=== PATIENT | female | born 1960 | race Asian ===

== ENCOUNTER 2024-04-09 03:00 | Inpatient (IN) | payer OTHER, SELFPAY ==
[2024-04-08 17:45] VITALS: BMI 16.4
[2024-04-08 17:47] VITALS: BP 126/79
[2024-04-08 17:58] VITALS: BP 126/79
[2024-04-08 19:32] LABS: % Basophils 0.4 % (0-2); % Immature Granulocytes 0.6 % (0-0.5); % Lymphocytes 33.4 % (20.5-51.1); % Monocytes 12.1 % (1.7-9.3); % Neutrophils 53.5 % (42.2-75.2); Absolute Lymphocytes 1.6 10^3/uL (1.2-3.4); Absolute Monocytes 0.6 10^3/uL (0.1-0.6); Absolute Neutrophils 2.6 10^3/uL (1.4-6.5); Hematocrit 28.2 % (37.0-47.0); Hemoglobin 9.8 g/dL (12.0-16.0); Mean Corp Hgb Conc. 34.8 g/dL (33.0-37.0); Mean Corpuscular Volume 92.2 fL (81.0-99.0); Mean Platelet Volume 8.9 fL (7.4-10.4); Nucleated Red Blood Cells % 0 %; Platelet Count 378 10^3/uL (130-400); Red Blood Cell Count 3.06 10^6/uL (4.20-5.40); Red Cell Dist. Width 14.7 % (11.5-14.5); White Blood Cell Count 4.9 10^3/uL (4.8-10.8)
[2024-04-08] MEDS: NSS 1000 IV (19:43)
[2024-04-08 19:49] LABS: ALT (SGPT) 38 U/L (0-35); AST (SGOT) 43 U/L (14-36); Albumin 3.4 g/dl (3.5-5.0); Alkaline Phosphatase 142 U/L (38-126); Blood Urea Nitrogen 14 mg/dl (7-17); Calcium 9.9 mg/dl (8.4-10.2); Carbon Dioxide 24 mmol/L (22-30); Chloride 103 mmol/L (98-107); Estimated Creatinine Clearance 58 ml/min; Glucose 88 mg/dl (70-99); Potassium 4.2 mmol/L (3.5-5.1); Sodium 137 mmol/L (135-145); Total Bilirubin 0.5 mg/dl (0.2-1.3); Total Protein 6.7 g/dl (6.3-8.2); eGFR > 60.00
[2024-04-08 19:50] LABS: Lipase 65 U/L (23-300)
[2024-04-08 20:05] LABS: Magnesium 1.9 mg/dl (1.6-2.3)
[2024-04-08] MEDS: PROTONIX IV 40 MG IV (20:12)
[2024-04-08] MEDS: MAALOX 40 PO (20:12)
[2024-04-08 21:43] VITALS: BP 100/69
--- NOTE | 2024-04-08 21:43 | ED.GENMED ---
History of Present Illness
General
Chief Complaint: Abdominal Pain
Source: patient
Exam Limitations: none
Time Seen by Provider: 04/08/24 19:07
Nursing documentation reviewed up to this point in time: agreed with
Travel History
Have you had any contact with someone who has COVID-19?: No
Do you have any symptoms of coronavirus? Fever > 100 degrees, chills, cough, shortness of breath, sore throat, loss of taste or smell, muscle aches, or headache?: No
History of Present Illness
History of Present Illness:
Patient discharged from the [facility] 2 days ago, after being treated for a number of medical conditions, including recent removal of previous gastric tube, presents to ED secondary to persistent abdominal pain with
intermittent episodes of vomiting since she has been home. Patient states that her abdominal pain actually started prior to being discharged home. Patient unable to recall or produce any discharge information from [facility]. Abdominal pain described as diffuse, pressure, without any alleviating or exacerbating factors. Denies trauma. Patient reports having had loose bowel movements since she has been home. Denies fever or chills. Denies coughing. Denies
sore throat.
Past History
Past History
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
ED Past Surgical History: Orthopedic and Other (Brain biopsy)
Patient has exhibited threatening behavior?: No
Social History
Tobacco: Non-smoker
Alcohol: None
Drug: None
Personal:
Living: with family
Employment: Not employed
Family History
Family History: Other (Mother is a paranoid schizophrenic)
Review of Systems
Review of Systems
Allergies reviewed?: Yes
Constitutional: Reports no symptoms; Denies fever
EENT: Reports no symptoms
Respiratory: Reports no symptoms; Denies trouble breathing
Cardiac: Reports no symptoms; Denies chest pain
ABD/GI: Reports abdominal pain, nausea, vomiting and diarrhea
: Reports no symptoms
Musculoskeletal: Reports no symptoms
Skin: Reports no symptoms
Neurological: Reports no symptoms
Phy Exam
Physical Exam
Physical Exam:
Physical Exam
General: mild distress, not acutely ill. afebrile
Head: nc/at. eomi
Neck: supple. no meningeal signs.
Heart: s1/s2 regular rate and rhythm, no murmur. equal radial pulses.
Lungs: no acute respiratory distress. clear bilaterally
Abdomen: normal bowel sounds. previous g-tube noted, with minimal bilious drainage. no distention. healing midline surgical scar noted with an approx 2cm x 4cm healing wound.
Neuro: alert and oriented. no focal neurological deficits
Skin: no rash
Psychiatric: well kept. interactive and cooperative
Extremities: no edema. no calf tenderness.
Course
Orders/Labs/Results
Orders:
Orders
04/08/24 19:25
Complete Blood Count/With Diff Urgent
Comprehensive Metabolic Panel Urgent
Lipase Urgent
Magnesium Urgent
04/08/24 19:28
0.9% Sodium Chloride 1000 ml [Nss] 1,000 ml IV BOLUS
04/08/24 19:29
Add On- LAB Urgent
Tests Added?: magnesium
Stool Culture Urgent
DIRK Source: Feces/Stool
Specimen Description:
04/08/24 20:02
Mag Hydrox/Al Hydrox/Simeth [Maalox] 30 ml Phenobarb/Hyoscy/Atropine/Scop [] 10 ml PO NOW
Pantoprazole [Protonix IV] 40 mg IV NOW STA
04/08/24 20:04
Mag Hydrox/Al Hydrox/Simeth [Maalox] 30 ml .ROUTE .STK-MED ONE
Phenobarb/Hyoscy/Atropine/Scop [] 10 ml .ROUTE .STK-MED ONE
04/08/24 21:47
CR Obstruct Series W/pa Chest Urgent
Comment:
Reason For Exam: abdominal pain w recent g-tube removal
04/08/24 22:54
Iohexol [Omnipaque] See Protocol PO NOW STA
04/09/24 00:15
CT Abd/pel W Iv And Oral Contr Urgent
Reason For Exam: abdominal pain
04/09/24 02:15
0.9% Sodium Chloride 1000 ml [Nss] 1,000 ml IV 100 mls/hr
04/09/24 02:47
Admit/Transfer Patient As Directed
Co-Sign Provider:
Level of Care: Inpatient admission
Assign to:: Medical/Surgical
Physician / Group: Laquita Booth - hospitalist
Diagnosis: pSBO vs ileus
Reason for Hospitalization: pSBO vs ileus - IVF, General surg eval
Expected length of stay greater than two midnights?: Yes
ELOS- Estimated Length of Stay in days: 2
I certify the patient meets the requirements for IP care: Yes
04/09/24 02:49
Code Status As Directed
Resuscitation Status: Full Code
04/09/24 05:06
Bisacodyl [Dulcolax] 10 mg RECTAL [id number] PRN
Docusate W/Senna [Senokot-S] 1 tablet PO BIDPRN PRN
Morphine Sulfate 2 mg IV Q4HPRN PRN
Ondansetron Injectable [Zofran] 4 mg IV Q6HPRN PRN
Polyethylene Glycol Powder [Miralax] 17 grams PO DAILYPRN PRN
04/09/24 05:06
SURGICAL CONSULT Routine
Consulting Provider: Chip Henson
Was physician already notified: Yes
Activity As Directed
Activity Level: As Tolerated
Obtain Records As Directed
Dates of Information to be Released: 01/25 to present
Type of Information Requested: Entire Record
Vital Signs As Directed
Frequency: Per unit guidelines
DX Deep Vein Thrombosis Video Routine
04/09/24 05:19
Complete Blood Count/No Diff IN AM
Comprehensive Metabolic Panel IN AM
04/09/24 Breakfast
NPO
Allow oral meds: Yes
Allow clear liquids: Sips of Clears
04/09/24 18:00
Enoxaparin Sodium [Lovenox] 30 mg SC QPM
Abnormal Lab Results
04/08/24
19:25
RBC 3.06 L 10^6/uL
(4.20-5.40)
Hgb 9.8 L g/dL
(12.0-16.0)
Hct 28.2 L %
(37.0-47.0)
MCH 32.0 H pg
(27.0-31.0)
RDW 14.7 H %
(11.5-14.5)
Immature Gran % 0.6 H %
(0-0.5)
Monocytes % 12.1 H %
(1.7-9.3)
Creatinine 0.4 L mg/dL
(0.6-1.0)
AST 43 H U/L
(14-36)
ALT 38 H U/L
(0-35)
Alkaline Phosphatase 142 H U/L
(38-126)
Albumin 3.4 L g/dl
(3.5-5.0)
04/08/24 19:25
04/08/24 19:25
Vital Signs
Initial and Last Documented VS:
Initial Vital Signs
Temp Pulse Resp BP Pulse Ox
98.6 F 94 13 126/79 96
04/08/24 17:47 04/08/24 17:47 04/08/24 17:47 04/08/24 17:47 04/08/24 17:47
Last Documented Vital Signs
Temp Pulse Resp BP Pulse Ox
98.3 F 94 18 102/66 97
04/09/24 07:30 04/09/24 07:30 04/09/24 07:30 04/09/24 07:30 04/09/24 07:30
MDM/Problems Addressed
MDM/Problems Addressed:
CT report reviewed - doubt completely obstructive process, as patient has had loose bowel movements since being discharged home and pain is minimal in ED without any vomiting episodes. Discussed with oncall general surgeon () -okay with
patient being managed at [facility], and not require transferred down to [facility].
In light of patient's complex medical condition, and likely needing short term rehab, will admit for further evaluation and treatment.
*Critical Care Note
Total Time (30-74mins, 75-104mins- exclusive of procedures): Not Applicable
ED Attending Note
-
Portions of this chart may have been created with voice recognition software.� Occasional wrong word or��sound alike� substitutions may have occurred due to the inherent limitations of voice recognition software.
Discharge Plan
Departure
Patient Disposition: Admit
Date of Disposition: 04/09/24
Time of Disposition: 02:01
Admit to: Telemetry
Presentation/result/management discussed w/ accepting MD/DO: Hospitalist
Discharge Problem:
Abdominal pain
Interventions
Interventions:
*General Assessment Last Done: 04/08/24 18:00
*Neglect/Abuse Screening Last Done: 04/08/24 18:00
ED- Fall Risk Assessment Last Done: 04/08/24 19:05
*Nursing Disposition Last Done: 04/09/24 04:39
RG-Cafelx-Kvkeydzibv Assessment Last Done: 04/08/24 18:00
Discharge Date and Time
Discharge Date/Time: 04/09/24 04:39
[2024-04-08 21:48] VITALS: BP 100/69
[2024-04-08 22:00] VITALS: BP 100/57
[2024-04-08] MEDS: OMNIPAQUE 50 ML PO (23:01)
[2024-04-09] VITALS (7 sets, daily range): BP systolic 93–128; BP diastolic 56–77; O2SAT 98; BMI 15.0
--- NOTE | 2024-04-09 02:01 | HPS.HSE ---
Family Physician
-
Family Physician: Luis Shepard
Chief Complaint
-
abd pain
History of Present Illness
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 Symptom onset 2 days ago. Pain is epigastric toward L abdomen. Pain is persistent, severe and does not radiate. Patient reports
vomiting. Has had loose BMs at home. No fever/chills. No CP, cough, SOB.
She was recently discharged from [facility] 2 days with removal of gastric tube - she is unable to give further details as to why she had a G tube in the first place but does report history of intolerance to solid foods. She is now on TPN via R CW PICC
line.
In ER, imaging revealed pSBO vs ileus and patient's case was discussed with surgery who ok'd admission here in leiu of transfer to [facility].
Records from [facility] are pending
Medical History
Past Medical History
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
Past Surgical History: Reports Other (brain biopsy, muscle biopsy, LP x 5, micro digital sympathectomy)
Social History
Tobacco: Non-smoker
Alcohol: None
Drug: None
Personal:
Living: With Family
Employment: Not Employed
Family History
Family History: Not pertinent
Allergies / Home Medications
Allergies reflects when Allergies were last updated in [facility].
Home Medications with original date entered in [facility]
Allergy/Medication List:
Allergies
Allergy/AdvReac Type Severity Reaction Status Date / Time
codeine Allergy headache Verified 04/24/23 12:36
diphenhydramine Allergy Unknown Verified 04/24/23 12:36
erythromycin base Allergy abdominal Verified 04/24/23 12:36
pain
naproxen Allergy ringing in Verified 04/24/23 12:36
my ears
Penicillins Allergy Unknown Verified 04/24/23 12:36
quinine Allergy gastric Verified 04/24/23 12:36
pain
Tetracyclines Allergy Rash Verified 04/24/23 12:36
Home Medications
apixaban 5 mg tablet (Eliquis) 5 mg PO BID 04/08/24
gabapentin 100 mg capsule 100 mg PO TID 04/08/24
Review of Systems
-
A 12 point ROS was completed and negative except as noted: Yes
Physical Exam
Vital Signs
Vital Signs
Temp Pulse Resp BP Pulse Ox
98.6 F 85 24 100/57 98
04/08/24 17:47 04/09/24 01:45 04/09/24 01:45 04/08/24 22:00 04/09/24 01:45
Physical Exam
General: Appears Chronically Ill and Cachectic
HEENT: NormoCephalic and Anicteric
Respiratory: No Wheezes or Rales
Cardiac: S1/S2 and Regular Rhythm
GI: Soft, Tender and Other (dressing in place, did not remove per patient request.)
Neuro: AO x 3
Psych: Calm
Laboratory Results
-
04/08/24 19:25
04/08/24 19:25
Laboratory Results
Total Bilirubin 0.5 mg/dl (0.2-1.3) 04/08/24 19:25
AST 43 U/L (14-36) H 04/08/24 19:25
ALT 38 U/L (0-35) H 04/08/24 19:25
Alkaline Phosphatase 142 U/L (38-126) H 04/08/24 19:25
Lipase 65 U/L (23-300) 04/08/24 19:25
Data Reviewed
-
Lab Data: Labs Reviewed by me
Impression/Plan
-
Assessment:
pSBO vs ileus
- per initial CT report: await final read
- case was discussed by ER and GS; ok to keep at
- NPO/IVF
- pain control, anti-emetics
- consider repeat imaging tomorrow in form of AXR
- patient is on TPN after removal of G-Tube. We have no records to explain indication for G-tube placement and subsequent removal.
- [facility] records requested.
Chronic conditions (per prior records)
Anxiety disorder.
Conversion disorder.
Pseudoseizures.
B12 deficiency
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
Abnormal brain lesion-left medial occipital lobe and posterior temporal lobe and diffusion restriction May 2014-also new development of previous right frontal brain craniotomy/brain biopsy-etiology unclear
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
Raynaud's.
Hypothyroid
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
Infectious/ischemic colitis [id number]
Brain biopsy-2013
DVT ppx: on prophylactic Eliquis at home; will hold this, use Lovenox instead in case of surgical intervention
Code: Full
[2024-04-09] MEDS: NSS 1000 IV ×3 (02:10→22:15)
[2024-04-09] MEDS: MORPHINE SULFATE 2 MG IV ×3 (05:28→15:54)
[2024-04-09 05:33] LABS: Hematocrit 25.7 % (37.0-47.0); Hemoglobin 8.6 g/dL (12.0-16.0); Mean Corp Hgb Conc. 33.5 g/dL (33.0-37.0); Mean Corpuscular Hgb 32.1 pg (27.0-31.0); Mean Corpuscular Volume 95.9 fL (81.0-99.0); Mean Platelet Volume 8.9 fL (7.4-10.4); Platelet Count 317 10^3/uL (130-400); Red Blood Cell Count 2.68 10^6/uL (4.20-5.40); Red Cell Dist. Width 14.8 % (11.5-14.5)
[2024-04-09 06:03] LABS: ALT (SGPT) 33 U/L (0-35); AST (SGOT) 30 U/L (14-36); Albumin 2.8 g/dl (3.5-5.0); Alkaline Phosphatase 118 U/L (38-126); Blood Urea Nitrogen 10 mg/dl (7-17); Calcium 9.1 mg/dl (8.4-10.2); Carbon Dioxide 22 mmol/L (22-30); Chloride 108 mmol/L (98-107); Estimated Creatinine Clearance 58 ml/min; Glucose 76 mg/dl (70-99); Sodium 140 mmol/L (135-145); Total Bilirubin 0.4 mg/dl (0.2-1.3); Total Protein 5.9 g/dl (6.3-8.2); eGFR > 60.00
--- NOTE | 2024-04-09 06:32 | PTCARENOTE ---
no delay received. pt aaox3 but anxious at times. vss. nss @ 100cc/hr via r picc. call [facility] at bedside. 2mg morphine admin for abd pain. pt updated on plan of care. will monitor.
--- NOTE | 2024-04-09 12:31 | W.PN.UPDATE ---
Update Note
Progress Note Update
Non billable note. Patient examined at bedside.
60-year-old female with history of Raynaud's, unspecified [employer] disorder, conversion disorder, meningeal encephalitis, abnormal brain lesion, autoimmune disorder possible lupus vasculitis, infectious/ischemic colitis, recently discharged from of
[place] came with abdominal pain, nausea, vomiting. CT scan consistent with bowel obstruction. Also concern for ileus. Surgery following. 2 very small fluid collection also seen which could be secondary to residual fluid collection given history of
recent gastrostomy tube removal. Records has been requested from [facility]. Call was placed to spouse, per him patient was hospitalized for about 8 months at [facility]. He doesnt know further details. He was able to find medication bottles and patient
is currently only on elqiuis,senna and gabapentin. repeat abdominal xray today. patient couldnt tell me why she is on eliquis. Keep NPO. antiemetics.
General: No Apparent Distress
HEENT: Anicteric
Cardiac: S1/S2 and Regular Rhythm
GI: Non Distended, Tender, midline surgical scar with previous G-tube site draining bilious fluid
Neuro: Awake and Oriented
Psych: Calm
--- NOTE | 2024-04-09 13:07 | CON.GS ---
Addendum entered and electronically signed by Chip Henson MD 04/10/24 10:12:
CDI
Recent passage of flatus and stool with minimal contrast into colon on repeat X-ray: High grade partial SBO
Addendum entered and electronically signed by Chip Henson MD 04/09/24 15:36:
Patient seen and examined.
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 Clinical history from the patient is limited. Currently she reports
abdominal pain which is worse in the LUQ. No fevers or chills. She reports having multiple procedures done at [facility] including an abdominal exploration with small bowel resections as well as a G-tube placement; unknown indication or exact
details. Records from [facility] are pending. Currently she denies any nausea or vomiting. Her last bowel movement was yesterday. She was initially discharged to home with TPN per the patient and 's request, however, she has been unable to
manage. Workup in the ED notable for normal WBC, chronic anemia, normal electrolytes and renal function, mildly elevated LFTs and ALP. A CT scan with oral and IV contrast demonstrates dilated loops of proximal and mid small bowel with decompressed
distal loops, transition point appears to be in the RIGHT mid to lower abdomen. No evidence of pneumatosis or free air.
Gen: NAD
Abd: soft, tender diffusely with excoriated skin at the midline and old G-tube site, gastric contents leaking from small whole a G-tube site, skin separation an weeping of midline, mild distension, non-peritoneal
Labs and imaging reviewed.
Patient is a 63 yo F p/w SBO likely secondary to adhesions possibly related to motility.
Difficult to completely discern for exact issue, though based on CT scan imaging appears as though she has a SBO. Component of abdominal pain likely neuropathic related to excoriation of skin. Workup ongoing, need records from [facility]. No plans
or indication for surgical intervention at this time. Recommend trial of medical management with bowel rest and IVF. If no improvement with nonsurgical measures, may need to consider transfer back to [facility] given the complexity of her case and
recent care.
-- No plans for surgical intervention at this time
-- NPO, IVF, consult nutrition for TPN recs
-- Repeat X-ray abdomen
-- Obtain records from [facility]
Original Note:
Consultation
-
Date/Time Consultation Requested: 04/09/2024
Date/Time Consultation Performed: 04/09/2024
Requesting Provider: Hospitalist
Performing Provider: Dr. Chip Gonzalez
Reason for Consultation: Possible small bowel obstruction versus ileus
Medical History
-
Chief Complaint: Abdominal pain
History of Present Illness:
Theresa is a 63-year-old female with history of anxiety disorder, conversion disorder, pseudoseizures, and Raynaud's phenomenon who presented to the ED on 04/25/2024 with LUQ abdominal pain. Patient is a poor historian. Patient reports LUQ
stabbing pain rated 10/10 that started 3 days ago s/p G-tube removal 04/06/2024. Patient had a long stay (at least 3 months) at [place] with chronic G-tube and right CW PICC line in place (reason for G-tube not known to the patient's) and stated that
the G-tube was not working hence its removal. Patient complaints that the abdominal pain is around the G-tube site, on and off, does not radiate, worse with any movement and gets better with Tylenol, diluted, morphine. She endorsed that the pain
does not disappear but improved to 5/10 with the above medications. Patient stated that the pain started prior to discharge from [facility] but got worse at home with some nausea, vomiting and diarrhea. Last episode of vomiting was p.m. of 04/06/2024
after solid food ingestion, and last BM was 04/07/2024. Patient was discharged to a rehab and did not go because she and her wanted to do things on their own. She stated that they could not find a facility that could handle both had TPN and
G-tube. There is no idea why the G-tube was placed and why it was removed. Attempts to contact the spouse, Ruperto ([phone]) for further information proved abortive. On physical exam, there is a midline surgical scar present with previous G-tube
site draining minimal bilious fluid. The G-tube sites had minimal erythema and excoriations with patient jumping in pain while the dressing is being removed. Patient denies chest pain, shortness of breath, nausea, and vomiting at this time.
Surgical team was consulted for further evaluation and management.
Past Medical History
Past Medical History: Psychiatric and Seizures
Past Surgical History: Bowel Resection
Social History
Tobacco: Non-Smoker
Alcohol: None
Drug: None
Personal:
Living: With Family
Employment: Not Employed
Family History
Family History: Other (Paranoid schizophrenia in mother.)
Allergies / Home Medications
Allergy/AdvReac Type Severity Reaction Status Date / Time
codeine Allergy headache Verified 04/24/23 12:36
diphenhydramine Allergy Unknown Verified 04/24/23 12:36
erythromycin base Allergy abdominal Verified 04/24/23 12:36
pain
naproxen Allergy ringing in Verified 04/24/23 12:36
my ears
Penicillins Allergy Unknown Verified 04/24/23 12:36
quinine Allergy gastric Verified 04/24/23 12:36
pain
Tetracyclines Allergy Rash Verified 04/24/23 12:36
�Medication �Instructions �Recorded �Confirmed �Type
apixaban 5 mg tablet (Eliquis) 5 mg PO BID 04/08/24 04/08/24 History
gabapentin 100 mg capsule 100 mg PO TID 04/08/24 04/08/24 History
Review of Systems
-
History Source: Patient
Constitutional: No Symptoms and Other (Denies fever, chills, chest pain, shortness of breath.)
EENT: No Symptoms
Respiratory: No Symptoms
Cardiac: No Symptoms
Abdomen/GI: Abdominal Pain and Other (History of nausea, vomiting, diarrhea.)
: No Symptoms
Musculoskeletal: No Symptoms
Skin: No Symptoms
Neurological: Other (History of pseudoseizure disorder)
Endocrine: No Symptoms
Hematologic/Lymphatic: No Symptoms
Physical Exam
Vital Signs
Temp Pulse Resp BP Pulse Ox
98.3 F 94 18 102/66 97
04/09/24 07:30 04/09/24 07:30 04/09/24 07:30 04/09/24 07:30 04/09/24 07:30
04/08/24 04/09/24 04/10/24
06:59 06:59 06:59
Actual Weight 38 kg 34.836 kg
Body Mass Index (BMI) 15.0
Lab Results
04/09/24 05:19
04/09/24 05:19
WBC 4.0 10^3/uL (4.8-10.8) L 04/09/24 05:19
Hgb 8.6 g/dL (12.0-16.0) L 04/09/24 05:19
Hct 25.7 % (37.0-47.0) L 04/09/24 05:19
Plt Count 317 10^3/uL (130-400) 04/09/24 05:19
Abs Immat Gran (auto) 0.0 10^3/uL (0-0.05) 04/08/24 19:25
Neutrophils % 53.5 % (42.2-75.2) 04/08/24 19:25
Physical Exam
General: No Apparent Distress, Pain and Poor Appetite
HEENT: Anicteric and Atraumatic
Cardiac: S1/S2 and Regular Rhythm; Negative Murmur or Rub
GI: Non Distended, Normal Bowel Sounds, Tender and Other (Midline surgical scar with previous G-tube site draining minimal bilious fluid)
Skin: Warm
Neuro: Awake and Oriented
Psych: Calm
Data Reviewed
-
Radiology: Image Personally Visualized and interpreted, Report Reviewed by me and Discussed with Physician
CT Scan: Image Personally Visualized and interpreted, Report Reviewed by me and Discussed with Physician
Labs: Labs Reviewed by me and Discussed with Physician
Old Records: Reviewed
Assessment / Plan
-
ASSESSMENT: 63-year-old female with PMH of pseudoseizure, conversion disorder, anxiety, unknown abdominal surgery s/p removal of G-tube who presented to ED complaining of abdominal pain around the G-tube site.
CONDITIONS PRIOR TO ADMISSION:
Anxiety disorder
Conversion disorder
Pseudoseizures
Meningoencephalitis
Raynaud's phenomenon
Brain biopsy
N/V/D
Impression/Plan:
Presentation with LUQ abdominal pain around G-tube site:
-Patient with history of G-tube placement and TPN via right CW PICC line.
-Pain most likely irritation from gastric content leakage vs psychogenic chronic pain syndrome. Ileus from adhesions from previous abdominal surgeries.
-CXR chest/abdomen 04/08/2024 suspicious of SBO, CTA/P 03/30/2024 with dilated loops of proximal to mid small bowel, anastomotic staple lines, no free intraperitoneal air, suggesting SBO.
-CR obstructive series today to further evaluate for ileus vs adhesions due to previous abdominal surgeries. This would also give us insight as to the need for G-tube replacement.
-Continue Lovenox, hold Eliquis (no idea why patient is on Eliquis at home).
DVT prophylaxis Lovenox.
CODE STATUS: Full code

---
Data:
CT abdomen/pelvis w/ oral and IV contrast 04/09/2024:
There is evidence of previous surgery with anastomotic staple lines present.
Dilated loops of proximal to mid small bowel with collapsed caliber distal ileum and colon. Findings would be most suggestive of small bowel obstruction. No evidence of free intraperitoneal air.
Diffuse fatty infiltration the liver.
CXR chest/abdomen 04/08/2024:
1. No acute cardiopulmonary process.
2. Findings suspicious for small bowel obstruction..
--- NOTE | 2024-04-09 14:00 | PTCARENOTE ---
Patient refused fiber heel boots.
--- NOTE | 2024-04-09 14:10 | WOUNDNOTE ---
TODD RN note: Patient admitted with abdominal pain.
See H&P for complete history.
PMH: Recently discharged from [facility] for abdominal surgeries and removal of feeding tube. Stroke, seizures, vasculitis, Raynauds, bowel obstruction, ischemic bowel, C-diff, UTI, L homonymous hemianopsia-visual loss and anxiety.
Wound Location and type/assessment: Patient admitted with: Healing PI to sacrum, now a stage 2 PI small open area, pink base with scar surrounding. Abdomen with healing surgical site, open shallow wounds, no odor and moderate drainage. 2 black
sutures visible proximal to suture line. Old feeding tube site with painful excoriated skin surrounding old opening, scant drainage. Heels are intact, appears patient has foot drop. Dressings very painful to remove with paper tape. Reviewed
abdominal wounds with Dr. Henson. Patient able to turn self to sides.
Appetite: NPO patient is only 76lbs.
Pressure redistribution devices in place: On [facility] air bed. Turning schedule in effect. Offloading heel boots.
Plan: Applied Exuderm thin with hole cut out for old FT opening, folded gauze over opening then secure with silicone foam. Abdominal suture line applied adaptic and dry dressing with silicone foam. changed sacral silicone foam. Called [employer] for TruVue
lite offloading heel boots, nurse will apply when arrives.
Will confirm orders with hospitalist and updated nurse Addis.
Updated care plan and will follow as needed.
Note to case management of equipment requested for discharge: air mattress.
Recommend follow up with surgeon from [facility].
--- NOTE | 2024-04-09 15:00 | PTCARENOTE ---
Patient refused fiber heel boots.
--- NOTE | 2024-04-09 15:58 | CM ---
patient access manager reviewed patient's chart and met with patient and patient states she was home for 2 days from [place] when she was admitted to [facility], Patient states she lives with her spouse and brother and requires assistance with adl's.
Patient's spouse has Parkinson's. Patient reports that she was at [place] for 3 months where case management coordinator was attempting placement there but they were unsuccessful. If patient plans to leave on TPN patient may not be accepted at a skilled facility
due to cost of TPN and overall monitoring. Patient has been evaluated by [facility] for services for patient and spouse. Patient is current with [facility]. Patient needs PT/OT to assist with discharge planning.
Plan; Await PT/OT,. look at possible skilled options for patient.
[2024-04-09] MEDS: LOVENOX 30 MG SC (17:19)
--- NOTE | 2024-04-10 03:54 | DOWNTIME ---
There was a [employer] Client Steam Frame Operator Downtime on 04/09/2024 from 0100 to 04/10/2024 at 0300. Downtime documentation of patient's care, including medication administrations, has been reconciled in the electronic record per guidelines. Refer to the
patient's paper chart under the miscellaneous tab to see printed paper medication records and downtime forms.
[2024-04-10 04:47] LABS: % Basophils 0.9 % (0-2); % Eosinophils 0.3 % (0-6); % Immature Granulocytes 0.6 % (0-0.5); % Lymphocytes 37.7 % (20.5-51.1); % Neutrophils 47.5 % (42.2-75.2); Absolute Lymphocytes 1.3 10^3/uL (1.2-3.4); Absolute Monocytes 0.5 10^3/uL (0.1-0.6); Absolute Neutrophils 1.6 10^3/uL (1.4-6.5); Hematocrit 25.9 % (37.0-47.0); Hemoglobin 8.3 g/dL (12.0-16.0); Mean Corpuscular Hgb 31.8 pg (27.0-31.0); Mean Corpuscular Volume 99.2 fL (81.0-99.0); Mean Platelet Volume 8.8 fL (7.4-10.4); Nucleated Red Blood Cells % 0 %; Platelet Count 293 10^3/uL (130-400); Red Blood Cell Count 2.61 10^6/uL (4.20-5.40); Red Cell Dist. Width 14.6 % (11.5-14.5); White Blood Cell Count 3.5 10^3/uL (4.8-10.8)
[2024-04-10 05:22] LABS: ALT (SGPT) 25 U/L (0-35); AST (SGOT) 28 U/L (14-36); Albumin 2.7 g/dl (3.5-5.0); Alkaline Phosphatase 106 U/L (38-126); Blood Urea Nitrogen 7 mg/dl (7-17); Carbon Dioxide 12 mmol/L (22-30); Chloride 109 mmol/L (98-107); Estimated Creatinine Clearance 53 ml/min; Glucose 39 mg/dl (70-99); Sodium 138 mmol/L (135-145); Total Bilirubin 0.4 mg/dl (0.2-1.3); Total Protein 5.6 g/dl (6.3-8.2); eGFR > 60.00
[2024-04-10 05:35] VITALS: BMI 14.9
--- NOTE | 2024-04-10 05:35 | W.PN.UPDATE ---
Addendum entered and electronically signed by VEL Mejia 04/10/24 06:25:
BS 127 at 0616
Original Note:
Update Note
Progress Note Update
BS 31, patient at baseline, Patient is NPO, On NSS , will order Dextrose 12.5 mg IV x1, will order D5NS @100cc/hr
Co2 12, will give Sodium bicarb 50meQ IV dose x1
[2024-04-10] MEDS: D5/0.9% SODIUM CHLORIDE 500 IV (06:00)
[2024-04-10] MEDS: DEXTROSE 50% SYRINGE 12.5 GRAMS IV (06:00)
[2024-04-10] MEDS: SODIUM BICARBONATE 50 MEQ IV (06:03)
--- NOTE | 2024-04-10 06:05 | PTCARENOTE ---
glucose 31. bicarb 13. control and recovery special tactics notified. 1/2 amp dextrose and d5 normal saling @ 100cc admin. 50meq bicarb admin. Will follow protocol. Will monitor.
[2024-04-10 06:17] LABS: Glucose - Point of Care 127 mg/dl (70-99)
[2024-04-10] MEDS: MORPHINE SULFATE 2 MG IV ×3 (06:59→18:03)
[2024-04-10 07:41] VITALS: BP 110/62
--- NOTE | 2024-04-10 11:05 | W.PN.UPDATE ---
Update Note
Progress Note Update
Psychiatric Evaluation Dictated.
Patient admits to dysphoria and anhedonia as well as passive suicidal thoughts; seems to be related to her having been in and out of [place] and several rehabs bor past 8 months and she sees no end in sight. Surgeon just informed her of need for
further abdominal surgery and recommends transfer to [place]. She states at times she wishes she was given an injection to end it all but denies active suicide plan as she loves her and her cats. She however has few interests and has
difficulty thinking positively.
She is not interested in psychotropic medications concerned about side effects and of course it is not clear if they would help.
Accepts need for psychotherapy.
I would continue 1:1 as she finds it helpful to have someone there for support.
We will F/U.
[2024-04-10] MEDS: D5/0.9% SODIUM CHLORIDE IV (12:42)
[2024-04-10] MEDS: D5/0.9% SODIUM CHLORIDE 1000 IV (12:43)
--- NOTE | 2024-04-10 12:56 | W.PN.HOSP.TC ---
Addendum entered and electronically signed by Naz Kapoor MD 04/11/24 16:33:
Hospitalist who took care of pt at [facility] [phone]
Not there today
Please call tomorrow
Original Note:
Today's Communication/Plan
-
TPN
Repeat BMP to see what the Bicarb is
Till TPN up, add dextrose to fluids
Assessment / Plan
Assessment / Plan
63-year-old female had extensive workup and and recent a 3-month hospital stay at [facility] was discharged 2 days ago. Came in with abdominal pain worse in the left upper quadrant. She has had multiple procedures at [facility] with small bowel
obstructions, G-tube placement. She had a bowel movement yesterday. She was initially discharged home with TPN but she was unable to manage with her who has Parkinson disease. CAT scan of the abdomen in the ER showed dilated loops of
proximal and mid small bowel with and decompressed distal loops with a transition point in the right mid to lower abdomen.
Spent a lot of time to get history from pt, an son at bed side. Unfortunately they are all confused about her history. No clear answer. From what I got ....reportedly she was transferred from [facility] to [facility]
in July 2023 and ever since then she has been [id number] to [facility] and do rehabs. She had a G-tube placed and which was eventually removed. She was placed on TPN because of her poor p.o. intake however she was placed on a diet and was
discharged
Cachectis
Abdomen with a wound, G tube site and her abdomen with midline scar
LE No edema
CROSSBAND LAYER Non focal
# Anion gap acidosis gap of 17
Lactic acid level normal
Will repeat BMP
# Small bowel obstruction
Considered management with bowel rest and IV fluids
If needs surgery may need to be transferred to [facility]
Surgery evaluation appreciated
Continue with TPN-ordered
Get records from [facility]
# Vague suicidal ideation, depression-on one-to-one observation
Psychiatry consulted
# Chronic anemia-Check Iron studies
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
Care is very fragmented she states she follows up with at [facility]
She was on Depakote at one point and not on it anymore.
MRI-left medial occipital lobe and posterior temporal lobe and diffusion restriction May 2014- previous right frontal brain craniotomy/brain biopsy
# Nonepileptic seizures and conversion disorder noted on previous neuro consult
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
# Positive JOHNATHON titer 1 is to 2559April 2021
Pt also says she has a positive Rheumatoid factor
Dr.Albert Nunn in [facility] 20 years ago
Has seen at [facility] has seen her to rule out Mitochondrial disorder , had a muscle Bx.
at [facility] has considered PRESS ,MELAS,[facility] , But no Diagnosis
Has seen once and did not go back.
# History of ischemic colitis
# Severe Protein Calorie Malnutrition
# Raynaud's phenomenon
# Stage 2 PI Sacrum
# DVT prophylaxis
# Full code
D/W RN
D/W and son at bed side
Anticipated Discharge: 24 - 48 hours
Subjective/Interval History
-
Date of Service: April 10, 2024
Objective Data
-
Labs:
Laboratory Results
04/10/24
04:38
WBC 3.5 L
Hgb 8.3 L
Hct 25.9 L
Plt Count 293
Sodium 138
Potassium 4.0
Chloride 109 H
Carbon Dioxide 12 L*
BUN 7
Creatinine 0.4 L
Glucose 39 L*
Calcium 9.0
Total Bilirubin 0.4
AST 28
ALT 25
Alkaline Phosphatase 106
Vital Signs:
Vital Signs
Temp Pulse Resp BP Pulse Ox
98.6 F 93 20 110/62 94
04/10/24 07:41 04/10/24 07:41 04/10/24 07:41 04/10/24 07:41 04/10/24 07:41
I&O
04/09/24 04/10/24 04/11/24
06:59 06:59 06:59
Intake Total 480 / 480
Output Total 1000 / 1000
Balance -520 / -520
--- NOTE | 2024-04-10 13:35 | W.PN.GS2 ---
Today's Communication / Plan
-
KUB
Assessment / Plan
-
63F admitted here 2 days after DC from [facility] after several month stay, has failed to thrive essentially, appears to have recurrent sbo vs ileus
GI unavailable today to attempt endoscopic closure of GC fistula, if she remains here tomorrow could consider
Will check KUB today
If no improvement by tomorrow rec transfer back to [facility]
Subjective Data
-
Date of Service: April 10, 2024
AFVSS, c/o intractable abd pain, denies flatus/BM, denies n/v
Objective Data
-
Intake and Output
04/09/24 04/10/24 04/11/24
06:59 06:59 06:59
Intake Total 480 / 480
Output Total 1000 / 1000
Balance -520 / -520
Intake:
Oral fluids 480 / 480
Output:
Urine, Voided 1000 / 1000
Vital Signs
Temp Pulse Resp BP Pulse Ox
98.6 F 93 20 110/62 94
04/10/24 07:41 04/10/24 07:41 04/10/24 07:41 04/10/24 07:41 04/10/24 07:41
Lab Results
04/10/24 04:38
04/10/24 04:38
Calcium 9.0 mg/dl (8.4-10.2) 04/10/24 04:38
Magnesium 1.9 mg/dl (1.6-2.3) 04/08/24 19:25
Total Bilirubin 0.4 mg/dl (0.2-1.3) 04/10/24 04:38
AST 28 U/L (14-36) 04/10/24 04:38
ALT 25 U/L (0-35) 04/10/24 04:38
Alkaline Phosphatase 106 U/L (38-126) 04/10/24 04:38
Total Protein 5.6 g/dl (6.3-8.2) L 04/10/24 04:38
Albumin 2.7 g/dl (3.5-5.0) L 04/10/24 04:38
Physical Exam
-
Gen: nervous, cachectic
Abd: soft, thin, GC fistula present with gastric juice on the skin and excoriation present, midline dressing not removed
[2024-04-10 13:46] LABS: Lactic Acid 1.4 mmol/L (0.7-2.0)
--- NOTE | 2024-04-10 13:55 | CM ---
financial institution manager reviewed patient's chart and spoke with patient this am, per patient she was able to ambulate short distances with a walker, when she was at [facility] in [place], waiting on surgery consult and recommendation. Patient will
need PT/OT evaluations.
Plan; To follow with patient for discharge planning needs.
[2024-04-10 14:11] LABS: Iron 106 ug/dl (37-170)
[2024-04-10] MEDS: D5/0.45%NACL 1000 IV (14:31)
[2024-04-10 14:36] LABS: Percent Saturation 41 % (20-50); Total Iron Binding Capacity 257 ug/dl (265-497)
[2024-04-10 15:04] LABS: ALT (SGPT) 27 U/L (0-35); AST (SGOT) 28 U/L (14-36); Albumin 2.8 g/dl (3.5-5.0); Alkaline Phosphatase 105 U/L (38-126); Blood Urea Nitrogen 5 mg/dl (7-17); Calcium 8.4 mg/dl (8.4-10.2); Carbon Dioxide 19 mmol/L (22-30); Chloride 107 mmol/L (98-107); Estimated Creatinine Clearance 52 ml/min; Glucose 74 mg/dl (70-99); Magnesium 1.4 mg/dl (1.6-2.3); Phosphorus 2.8 mg/dl (2.5-4.5); Potassium 3.5 mmol/L (3.5-5.1); Sodium 137 mmol/L (135-145); Total Bilirubin 0.4 mg/dl (0.2-1.3); Total Protein 5.7 g/dl (6.3-8.2); Triglycerides 189 mg/dl (10-149); eGFR > 60.00
[2024-04-10 15:10] VITALS: BP 103/62
[2024-04-10 15:21] LABS: TSH 7.12 uIU/ml (0.47-4.68)
[2024-04-10 15:24] LABS: Ferritin 14.4 ng/ml (11.1-264.0)
--- NOTE | 2024-04-10 15:38 | PTCARENOTE ---
Offered patient a suppository to have a BM. Patient states LBM Monday, declines suppository at this time.
[2024-04-10 15:39] LABS: Vitamin B12 870 pg/ml (239-931)
[2024-04-10 15:53] LABS: Urine Albumin Negative (Neg - Trace); Urine Bilirubin Negative (Negative); Urine Character Clear (Clear); Urine Color Yellow; Urine Glucose Trace (Negative); Urine Ketone 3+ (Negative); Urine Leukocyte Negative (Negative); Urine Nitrite Negative (Negative); Urine Occult Blood Negative (Negative); Urine Specific Gravity 1.025 (<1.030); Urine Urobilinogen Negative (Neg - 1+)
[2024-04-10] MEDS: MAGNESIUM SULFATE 50 IV (16:48)
[2024-04-10] MEDS: LOVENOX SC (16:50)
--- NOTE | 2024-04-10 16:53 | PTCARENOTE ---
Patient refused Lovenox. Provider notified.
[2024-04-10 18:10] LABS: Glucose - Point of Care 84 mg/dl (70-99)
--- NOTE | 2024-04-10 18:40 | PTCARENOTE ---
Patient continues to say that she doesn't want to 'live like this'. No threat to injure herself. Pt does become upset at times and cries. Ruperto in room throughout the day. Emotional support continues to be provided and one to one
maintained. Pt did ask to speak with a [place]. scallop cutter Frankie notified and she did call the room and spoke with patient.
[2024-04-10] MEDS: Parenteral Nutrition, Central 1000 IV (20:40)
[2024-04-10 22:50] VITALS: BP 107/60
[2024-04-11] MEDS: MORPHINE SULFATE 2 MG IV ×4 (03:17→20:42)
[2024-04-11 06:00] VITALS: BMI 15.5
[2024-04-11 06:02] LABS: Blood Urea Nitrogen 7 mg/dl (7-17); Calcium 8.5 mg/dl (8.4-10.2); Carbon Dioxide 23 mmol/L (22-30); Chloride 104 mmol/L (98-107); Estimated Creatinine Clearance 52 ml/min; Glucose 134 mg/dl (70-99); Magnesium 1.9 mg/dl (1.6-2.3); Phosphorus 3.3 mg/dl (2.5-4.5); Potassium 3.9 mmol/L (3.5-5.1); Sodium 134 mmol/L (135-145); eGFR > 60.00
[2024-04-11] MEDS: D5/0.45%NACL 1000 IV ×2 (06:30→15:11)
[2024-04-11 06:54] LABS: Glucose - Point of Care 147 mg/dl (70-99)
[2024-04-11 07:50] VITALS: BP 110/62
[2024-04-11] MEDS: LOVENOX SC (07:55)
--- NOTE | 2024-04-11 11:36 | CM ---
Chart reviewed patient remains on 1:1, waiting on medical update on plan for patient.
Plan; To follow with patient progress.
[2024-04-11 12:07] LABS: Glucose - Point of Care 150 mg/dl (70-99)
--- NOTE | 2024-04-11 12:08 | W.PN.UPDATE ---
Update Note
Progress Note Update
patient seen chart reviewed. spoke with nursing and reviewed case with dr diaz. the patient has had a very very trying year. she was hosp at [facility] for about eight months and had several stays in alf facility which she describes with
great sadness and frustration. she considers that the care she often received was neglectful and suboptimal. she does feel very discouraged given the reality that despite many hosp she is still so ill. she is however committed to her recovery
given her love for her and her cats. will offer support. can dc one to one as patient not suicidal at this time. she is not interested in psychotropic medications. will check in on her tomorrow.
--- NOTE | 2024-04-11 12:11 | W.PN.GS2 ---
Today's Communication / Plan
-
`
Assessment / Plan
-
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
AFVSS
Abdominal x-ray yesterday demonstrates a chronically dilated loops of small bowel but oral contrast had progressed into distal/descending colon
Plan: No indications for acute surgical management of ileus/dysmotility versus low-grade PSBO -recently administered oral contrast from CT on admission has progressed throughout the colon
TPN for nutritional support -which is anticipated to be prolonged
Would not p.o. challenge until gastrocutaneous fistula output either stops or is managed endoscopically; given complex recent abdominal surgery/laparotomy would avoid any open surgical procedures for management of her gastrocutaneous fistula at
this time.
Local wound care for gastrocutaneous fistula to limit caustic irritation of the surrounding dermis
Would either recommend transfer to [facility] to undergo endoscopic closure of her gastrocutaneous fistula or consulting our GI service for evaluation for this procedure
Subjective Data
-
Date of Service: April 11, 2024
Patient seen and examined. Lying in bed.
Reports continued abdominal pain predominantly at old gastrostomy tube site area but also generalized abdominal discomfort and tenderness in the region of her incision.
No nausea
No bowel movements
Objective Data
-
Intake and Output
04/10/24 04/11/24 04/12/24
06:59 06:59 06:59
Intake Total 480 / 480 1300 / 1300
Output Total 1000 / 1000 600 / 600
Balance -520 / -520 700 / 700
Intake:
Oral fluids 480 / 480 0 / 0
IV fluids (Total) 900 / 900
TPN/PPN 400 / 400
Output:
Urine, Voided 1000 / 1000 600 / 600
Other:
How many times incontinent 1
MODERATE amount urine
How many times incontinent 1
SATURATED amount urine
Vital Signs
Temp Pulse Resp BP Pulse Ox
98.5 F 77 16 110/62 98
04/11/24 07:50 04/11/24 07:50 04/11/24 07:50 04/11/24 07:50 04/11/24 07:50
Lab Results
04/10/24 04:38
04/11/24 05:18
Calcium 8.5 mg/dl (8.4-10.2) 04/11/24 05:18
Phosphorus 3.3 mg/dl (2.5-4.5) 04/11/24 05:18
Magnesium 1.9 mg/dl (1.6-2.3) 04/11/24 05:18
Total Bilirubin 0.4 mg/dl (0.2-1.3) 04/10/24 14:32
AST 28 U/L (14-36) 04/10/24 14:32
ALT 27 U/L (0-35) 04/10/24 14:32
Alkaline Phosphatase 105 U/L (38-126) 04/10/24 14:32
Total Protein 5.7 g/dl (6.3-8.2) L 04/10/24 14:32
Albumin 2.8 g/dl (3.5-5.0) L 04/10/24 14:32
Physical Exam
-
No acute distress, awake alert oriented x 3, chronically ill appearing
ABD: Softly distended, generalized tenderness on palpation
Midline laparotomy surgical scars
Left upper quadrant old gastrostomy tube site with some bilious drainage on bandage
--- NOTE | 2024-04-11 14:15 | W.PN.HOSP.TC ---
Today's Communication/Plan
-
GI Eval
TPN ordered.
PT OT eval
Assessment / Plan
Assessment / Plan
63-year-old female had extensive workup and and recent a 3-month hospital stay at [facility] was discharged 2 days ago. Came in with abdominal pain worse in the left upper quadrant. She has had multiple procedures at [facility] with small bowel
obstructions, G-tube placement. She had a bowel movement yesterday. She was initially discharged home with TPN but she was unable to manage with her who has Parkinson disease. CAT scan of the abdomen in the ER showed dilated loops of
proximal and mid small bowel with and decompressed distal loops with a transition point in the right mid to lower abdomen.
Spent a lot of time to get history from pt, an son at bed side. Unfortunately they are all confused about her history. No clear answer. From what I got ....reportedly she was transferred from [facility] to [facility]
in July 2023 and ever since then she has been [id number]-[id number] to [facility] and do rehabs. She had a G-tube placed and which was eventually removed. She was placed on TPN because of her poor p.o. intake however she was placed on a diet and was
discharged
Cachectic
Abdomen with a wound, G tube site and her abdomen with midline scar, with some open areas
LE No edema
TREASURY AGENT Non focal
# Small bowel obstruction
No indication for acute surgery. Oral contrast has progressed through the colon. 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
With the fistula if it is active patient cannot take p.o.
She stated that she was allowed p.o.'s at home again she is a very poor historian therefore I would not take her word for it.
Continue with TPN-ordered
Get records from [facility]-still awaited.
# Anion gap acidosis gap of 17
Lactic acid level normal
suspect met acidosis from Starvation ketosis
Improved
# Vague suicidal ideation, depression-on one-to-one observation
Psychiatry consulted
Okay to take 1:1 off per psyche- DC ed.
# Chronic anemia-Check Iron studies
# History of unknown TREASURY AGENT disease for which she was treated with steroids and Keppra in 2013
Care is very fragmented she states she follows up with at [facility]
She was on Depakote at one point and not on it anymore.
MRI-left medial occipital lobe and posterior temporal lobe and diffusion restriction May 2014- previous right frontal brain craniotomy/brain biopsy
# Nonepileptic seizures and conversion disorder noted on previous neuro consult
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
# Positive JOHNATHON titer 1 is to 2560 April 2021
Pt also says she has a positive Rheumatoid factor
Dr.Albert Nunn in [facility] 20 years ago
Has seen at [facility] has seen her to rule out Mitochondrial disorder , had a muscle Bx.
at [facility] has considered PRESS ,MELAS,[facility] , But no Diagnosis
Has seen once and did not go back.
# History of ischemic colitis
# Severe Protein Calorie Malnutrition
# Raynaud's phenomenon
# Stage 2 PI Sacrum
# DVT prophylaxis
# Full code
D/W RN
D/W Surgeon
D/W GI
D/W and son at bed side 04/10/24
Anticipated Discharge: 24 - 48 hours
Subjective/Interval History
-
Date of Service: April 11, 2024
Objective Data
-
Labs:
Laboratory Results
04/11/24
05:18
Sodium 134 L
Potassium 3.9
Chloride 104
Carbon Dioxide 23
BUN 7
Creatinine 0.3 L
Glucose 134 H
Calcium 8.5
Vital Signs:
Vital Signs
Temp Pulse Resp BP Pulse Ox
98.5 F 77 16 110/62 98
04/11/24 07:50 04/11/24 07:50 04/11/24 07:50 04/11/24 07:50 04/11/24 07:50
I&O
04/10/24 04/11/24 04/12/24
06:59 06:59 06:59
Intake Total 480 / 480 1300 / 1300
Output Total 1000 / 1000 600 / 600
Balance -520 / -520 700 / 700
--- NOTE | 2024-04-11 14:58 | CON.GI ---
Addendum entered and electronically signed by Ashley Jacobo DO 04/11/24 17:15:
I saw and examined the patient.
The MOBILE DESIGNER or PA's note was reviewed and I agree with the note.
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, mitochondrial d/o?, extensive surgical history with multiple small bowel resections who was recently discharged from [facility] 2 days ago after an 8-month
long hospitalization, unclear hospital course. Patient is a poor historian but was able to gather that she had a G-tube placed for venting only during this hospitalization due to chronic obstruction, never received feeds through this, occasionally
it was used for medication, it was then removed as she says it was not doing anything to relieve the obstruction. I am not sure if this tube was removed 3 days ago 3 months ago. She has chronic abdominal pain, states her pain is no worse than when
she left [facility]. She states nothing changed in her symptoms from her discharge to her now admission to . It does appear her helps care for her at home, struggles with multiple medical issues, including Parkinsons, and is unable to care
for her.
Upon admission, patient had a CT showing dilated loops of proximal and mid small bowel with decompressed distal loops, transition point appearss to be in the right mid to lower abdomen. Site of prior G tube with scant amount of clear leakage due
from presence of gastrocutaneous fistula. She denies copious output, sometimes a few ounces of clear fluid in 24 hour period, but does not seem to be a major issue for her. Mainly, her complaint is pain, everywhere. States she had tremendous pain
with Gtube present, and given it was not providing benefit and causing her pain they removed it. Despite its removal, she has the same pain present. She also endorses pain everywhere in her abdomen, unable to tolerate deep palpation with voluntary
guarding. +BS.
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 Need records from [facility] to compare recent films as well as her lengthy
hospitalization.
Would not recommend endoscopic closure of her fistula, if anything, its probably helping any obstruction, but it doesn't seem to be a main issue at this time. As long as she is NPO, receiving nutrition via TPN, it does not require closure. This
should be addressed at some point if it does not close on its own, again, we have no idea when this was removed...
Agree with transfer to [facility] if surgical intervention is deemed necessary, at which point, GI can evaluate if they feel fistula requires closure.
Original Note:
Consultation
-
Date/Time Consultation Requested: 04/11/24 1400
Date/Time Consultation Performed: 04/11/24 1500
Requesting Provider: Naz Parsons MD
Performing Provider: VEL Fitzpatrick
Reason for Consultation: fistula at prior peg site
Medical History
Chief Complaint / HPI
Chief Complaint: abdominal pain
History of Present Illness:
Pt is a 63yo presents unspecified COMPUTATIONAL PHYSICIST disorder, seizure disoder, raynaud's, brain biopsy, muscle biopsy, SBO with prior surgery, enteritis on prior imaging with very limited history from patient and family after prolonged stay at [place]. Records have
been requested but not received. She had peg placed at some point and then d/c prior to admission. Unclear if venting peg vs for feeds. She is currently on TPN and asked to for closure of peg fistula site.
Pt currently complains of abdominal pain worse around prior peg site. She also admits to occasional nausea and vomiting. With alternating diarrhea and constipation. She denies dysphagia, GERD, diarrhea, constipation or bleeding. She does
admit to wt loss.
Past Medical History
Past Medical History: Asthma, Hypothyroidism, Seizures, Psychiatric (anxiety, pseudoseizures) and Other (raynauds, unspecified neurological disorder followed at [facility], conversion disorder, prior C-diff infection, ischemic colitis,
meningioenephalitis 2012)
Past Surgical History: Other (brain biopsy, muscle biopsy, LP x 5, micro digital sympathectomy)
Social History
Tobacco: Non-Smoker
Alcohol: None
Drug: None
Personal:
Living: With Family
Employment: Disabled
Family History
Family History: Other (no family hx GI issues, mother schizoaffective d/o father multiple med issues with kidney transplant lung CA)
Allergies / Home Medications
Allergy/AdvReac Type Severity Reaction Status Date / Time
codeine Allergy headache Verified 04/24/23 12:36
diphenhydramine Allergy Unknown Verified 04/24/23 12:36
erythromycin base Allergy abdominal Verified 04/24/23 12:36
pain
naproxen Allergy ringing in Verified 04/24/23 12:36
my ears
Penicillins Allergy Unknown Verified 04/24/23 12:36
quinine Allergy gastric Verified 04/24/23 12:36
pain
Tetracyclines Allergy Rash Verified 04/24/23 12:36
�Medication �Instructions �Recorded
apixaban 5 mg tablet (Eliquis) 5 mg PO BID Blood Clot 04/08/24
Prevention/Tx
gabapentin 100 mg capsule 100 mg PO TID Neurological 04/08/24
Condition
Review of Systems
-
History Source: Patient
Constitutional: Reports Weight Loss
EENT: Reports No Symptoms
Respiratory: Reports No Symptoms
Cardiac: Reports No Symptoms
Abdomen/GI: Reports Abdominal Pain, Nausea, Vomiting, Diarrhea and Constipated
: Reports No Symptoms
Musculoskeletal: Reports Other (diffuse weakness)
Neurological: Reports Other (weakness, word finding difficulty)
Endocrine: Reports No Symptoms
Hematologic/Lymphatic: Reports No Symptoms
Vital Signs
Temp Pulse Resp BP Pulse Ox
98.5 F 77 16 110/62 98
04/11/24 07:50 04/11/24 07:50 04/11/24 07:50 04/11/24 07:50 04/11/24 07:50
Physical Exam
Exam
General: No Apparent Distress and Other (thin appearing)
HEENT: Normocephalic and Anicteric
Respiratory: Clear
Cardiac: Regular Rhythm
GI: Soft, Non Distended and Tender (diffuse worse over prior peg site, mild line incision with open areas -- healing wound vs other )
Genito-urinary: No Costovertebral Tender
Musculoskeletal: No Clubbing and No Cyanosis
Skin: Warm and Dry
Neuro: Awake, Alert, AO x 3 and Other (word finding difficulty)
Psych: Calm
Results
WBC 3.5 10^3/uL (4.8-10.8) L 04/10/24 04:38
Hgb 8.3 g/dL (12.0-16.0) L 04/10/24 04:38
Hct 25.9 % (37.0-47.0) L 04/10/24 04:38
MCV 99.2 fL (81.0-99.0) H 04/10/24 04:38
Plt Count 293 10^3/uL (130-400) 04/10/24 04:38
Absolute Neuts (auto) 1.6 10^3/uL (1.4-6.5) 04/10/24 04:38
Sodium 134 mmol/L (135-145) L 04/11/24 05:18
Potassium 3.9 mmol/L (3.5-5.1) 04/11/24 05:18
Chloride 104 mmol/L (98-107) 04/11/24 05:18
Carbon Dioxide 23 mmol/L (22-30) 04/11/24 05:18
BUN 7 mg/dl (7-17) 04/11/24 05:18
Creatinine 0.3 mg/dL (0.6-1.0) L 04/11/24 05:18
Calcium 8.5 mg/dl (8.4-10.2) 04/11/24 05:18
Total Bilirubin 0.4 mg/dl (0.2-1.3) 04/10/24 14:32
AST 28 U/L (14-36) 04/10/24 14:32
ALT 27 U/L (0-35) 04/10/24 14:32
Alkaline Phosphatase 105 U/L (38-126) 04/10/24 14:32
Lipase 65 U/L (23-300) 04/08/24 19:25
Diagnostic Image Results:
04/09/24 CT Abd/pel W Iv And Oral Contr
There is evidence of previous surgery with anastomotic staple lines present.
Dilated loops of proximal to mid small bowel with collapsed caliber distal ileum and colon. Findings would be most suggestive of small bowel obstruction. No evidence of free intraperitoneal air.
Diffuse fatty infiltration the liver.
04/09/24 Abd film
Persistent small bowel obstruction.
04/10/[address] from CT examination of April 09, 2024 has progressed into the distal colon.
There remain air-filled loops of proximal to mid small bowel, probably not significantly changed from recent abdominal radiograph of April 09, 2024.
Prior GI Procedures:
? more recent at [facility]
EGD: 01/2015- bile gastric fluid, erythema gastric body, HH, regular Z line
Colonoscopy: 11/2015 Erythema in rectum
Assessment / Plan
-
Pt is a 63yo presents unspecified COMPUTATIONAL PHYSICIST disorder, seizure disorder, raynaud's, brain biopsy, muscle biopsy, SBO with prior surgery, enteritis on prior imaging with very limited history from patient and family after prolonged stay at [place]. Records
have been requested but not received. She had peg placed at some point and then d/c prior to admission. Unclear if venting peg vs for feeds. She is currently on TPN and asked to for closure of peg fistula site. Pt currently complains of
abdominal pain worse around prior peg site.
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
-concern for SBO on admission-- contrast passing on follow up imaging
-COMPUTATIONAL PHYSICIST disorder with prior brain and muscle bx followed at [place]
-wt loss with current TPN therapy
-? hx abd surgery with healing wound
-sacral wound
other medical problems:
-hx prior enteritis on imaging
-hx possible ischemic colitis [id number]
-hx +JOHNATHON
-cdiff in past
-Raynaud's
-prior non specific neuro d/o 2012 with visual changes, pseudoseizures
-hx conversion disorder
-asthma
-anxiety
PLAN:
Very limited history with patient and per Dr. Parsons family also limited in history.
I left message with Dr. Paco Churchill at [place] [phone] - hospitalist during last admission in February to clarify diagnosis and plan
I refaxed request for records and requested staff to call for records
reviewed with Dr. Kwok for now would not close fistula as per patient recently d/c'd and with chronic GI process may be acting as venting peg -- may try to allow to close on own
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
reviewed imaging-- appreciate surgical input contrast passing with concern for obstruction on admission
cont TPN
consider trial of diet but best to review records for full details of recent illness
-
-
Thank you for consultation and allowing me to participate in the patient's care. Please call the donor floor technician GI physician during the after hours with any questions or concerns.
[2024-04-11 15:00] VITALS: BP 114/65
[2024-04-11 17:56] LABS: Glucose - Point of Care 132 mg/dl (70-99)
[2024-04-11] MEDS: Parenteral Nutrition, Central 1000 IV (20:47)
[2024-04-11 23:44] VITALS: BP 112/61
[2024-04-12 00:18] LABS: Glucose - Point of Care 120 mg/dl (70-99)
[2024-04-12] MEDS: MORPHINE SULFATE 2 MG IV ×4 (02:28→22:26)
[2024-04-12 05:47] VITALS: BMI 15.1
[2024-04-12 05:52] LABS: Glucose - Point of Care 117 mg/dl (70-99)
[2024-04-12 06:08] LABS: Blood Urea Nitrogen 14 mg/dl (7-17); Calcium 8.9 mg/dl (8.4-10.2); Carbon Dioxide 24 mmol/L (22-30); Chloride 103 mmol/L (98-107); Estimated Creatinine Clearance 53 ml/min; Glucose 124 mg/dl (70-99); Magnesium 1.9 mg/dl (1.6-2.3); Phosphorus 3.8 mg/dl (2.5-4.5); Potassium 4.5 mmol/L (3.5-5.1); Sodium 133 mmol/L (135-145); eGFR > 60.00
[2024-04-12] MEDS: LOVENOX SC (07:13)
[2024-04-12 07:42] VITALS: BP 108/66
--- NOTE | 2024-04-12 10:52 | W.PN.GS2 ---
Addendum entered and electronically signed by Isaiah Hope MD 04/12/24 12:27:
Patient seen and examined in follow-up.
[facility] medical records now on chart and correspondence reviewed. 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
duodenum/chronic gastroparesis and dysmotility. She had a jejunostomy tube placed at this operation which broke down resulting in leak. She returned for a laparotomy, small bowel resection and placement of a another feeding jejunostomy tube. This
jejunostomy tube also broke down resulting in a leak and a third laparotomy which resulted in a complex abdominal wall wound, abdominal wall closure with Vicryl mesh and subsequent placement of a gastrostomy tube for decompression. This was all
back in the fall 2022. Patient has essentially been TPN dependent since.
At today's follow-up evaluation she offers no additional medical concerns or questions other than her chronic abdominal pain and body pains.
AFVSS
Abdomen examined NG tube site appears only to have a pinpoint remaining opening.
Continued tympany and moderate distention stable.
Assessment/plan: 63-year-old female with chronic dysmotility versus chronic partial small bowel obstruction with TPN dependence since hospitalization and multiple laparotomies as outlined above at [facility]. Small residual
gastrocutaneous fistula at previous G-tube site after removal.
Recommend local wound care to see fistula
TPN for nutritional support which per [place] records appears as though patient will likely be dependent long-term for nutritional intake
No further surgical procedures planned.
Dispo planning would need to include continue TPN and local wound care at previous G-tube site.
Original Note:
Today's Communication / Plan
-
--
Assessment / Plan
-
Assessment: 63F admitted to 2 days after DC from [facility] after several month stay with multiple surgeries that admission (reviewed records), has failed to thrive essentially, appears to have recurrent sbo vs ileus in addition to gastrocutaneous
fistula at previous G-tube site that was removed d/t pain.
AFVSS
Abdominal x-ray demonstrated a chronically dilated loop of small bowel but oral contrast had progressed into distal/descending colon
Plan: No indications for acute surgical management of ileus/dysmotility versus low-grade PSBO -recently administered oral contrast from CT on admission has progressed throughout the colon
TPN for nutritional support -which is anticipated to be prolonged
Local wound care for gastrocutaneous fistula to limit caustic irritation of the surrounding dermis
GI following with us, no plans for endoscopic procedure at this time
Subjective Data
-
Date of Service: April 12, 2024
Patient seen and examined at bedside with Dr. Hope. C/o Pain to prior tube site. Pain with movement, can't get comfortable. Does not feel ready to trial PO intake
Objective Data
-
Intake and Output
04/11/24 04/12/24 04/13/24
06:59 06:59 06:59
Intake Total 1300 / 1300 0 / 0
Output Total 600 / 600 1100 / 1100
Balance 700 / 700 -1100 / -1100
Intake:
Oral fluids 0 / 0 0 / 0
IV fluids (Total) 900 / 900 0 / 0
IV piggybacks 0 / 0
TPN/PPN 400 / 400
Output:
Urine, Voided 600 / 600 1100 / 1100
Other:
How many times incontinent 1
MODERATE amount urine
How many times incontinent 1 2
SATURATED amount urine
Vital Signs
Temp Pulse Resp BP Pulse Ox
98.0 F 74 20 108/66 97
04/12/24 07:42 04/12/24 07:42 04/12/24 07:42 04/12/24 07:42 04/12/24 07:42
Lab Results
04/10/24 04:38
04/12/24 05:06
Calcium 8.9 mg/dl (8.4-10.2) 04/12/24 05:06
Phosphorus 3.8 mg/dl (2.5-4.5) 04/12/24 05:06
Magnesium 1.9 mg/dl (1.6-2.3) 04/12/24 05:06
Total Bilirubin 0.4 mg/dl (0.2-1.3) 04/10/24 14:32
AST 28 U/L (14-36) 04/10/24 14:32
ALT 27 U/L (0-35) 04/10/24 14:32
Alkaline Phosphatase 105 U/L (38-126) 04/10/24 14:32
Total Protein 5.7 g/dl (6.3-8.2) L 04/10/24 14:32
Albumin 2.8 g/dl (3.5-5.0) L 04/10/24 14:32
Physical Exam
-
No acute distress, awake alert oriented x 3, chronically ill appearing
ABD: Softly, ND, generalized tenderness on palpation
Midline laparotomy surgical scars
Left upper quadrant old gastrostomy tube site with some minimal drainage, bandage changed with very small pinpoint opening/tract noted
[2024-04-12 11:53] LABS: Glucose - Point of Care 138 mg/dl (70-99)
--- NOTE | 2024-04-12 11:54 | CM ---
Addendum entered by Elizabeth Jason 04/12/24 15:34:
27 referrals sent to skilled facilities, [facility] in [place] will review on Monday, and discuss TPN, other options are [facility] [phone] , all clinicals faxed.
Original Note:
manager in home reviewed patient's chart and met with patient, per physical therapy notes they recommend rehab for patient. Patient will be on prolonged TPN, [facility] spoke with [facility] and they reached out to their facilities and they cannot
provide prolonged TPN. manager in home reached out to LTAC, [place] facilities to review however patient may not meet criteria for LTAC, and [facility] may not cover LTAC level on care.
Plan; Placement.
--- NOTE | 2024-04-12 14:05 | W.PN.UPDATE ---
Update Note
Progress Note Update
patient seen chart reviewed. spoke with case mgt and via telephone. at this point there is much discussion about transition to snf. it seems patient and are very ambivalent about her going to snf...[facility] is considering her.
asked me questions i could not answer re the treatment needed and i suggested he would need to talk to hospitalist....ms marinelli reassured me dr patiño was cognizant of all relevant issues at this point and it is recommended patient go to
snf and not to home. tried to offer patient support. she is discouraged at continued need for her to be in a placement rather than resolution of her medical illnesses. ms marinelli tells me dc is likely today psych will sign off. please call us if
you need us to return.
--- NOTE | 2024-04-12 14:11 | W.PN.HOSP.TC ---
Today's Communication/Plan
-
Continue supportive care
Continue TPN
Wound care.
Medically optimized for placement to longterm facility.
Resume anticoagulation with Eliquis
Follow hemoglobin.
Assessment / Plan
Assessment / Plan
63-year-old female had extensive workup and and recent a 3-month hospital stay at [place] was discharged 2 days ago. Came in with abdominal pain worse in the left upper quadrant. She has had multiple procedures at [facility] with small bowel
obstructions, G-tube placement. She had a bowel movement yesterday. She was initially discharged home with TPN but she was unable to manage with her who has Parkinson disease. CAT scan of the abdomen in the ER showed dilated loops of
proximal and mid small bowel with and decompressed distal loops with a transition point in the right mid to lower abdomen.
Impression:
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
Severe malnutrition cachexia with TPN dependence
Status post multiple laparotomies.
History of PRESS and concern for seizure.
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
Hemiparesis
History of subsegmental PE.
History of Raynaud's syndrome/digital ischemia
Plan
Status post PEG tube/PEG tube removal. In review of her records PEG tube was placed for decompression and patient with chronic partial small bowel obstruction/pseudoobstruction. PEG tube has been removed with residual fistula currently closing
with no indication for any surgical procedure according to gastroenterology and surgery evaluation here. Continue nutritional support with TPN and wound care.
Cachectic
Abdomen with a wound, G tube site and her abdomen with midline scar, with some open areas
LE No edema
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
# Small bowel obstruction
Chronic with no current indication for surgical intervention. Oral contrast has progressed through the colon. However patient has a gastro. His fistula therefore surgeon recommending GI evaluation to see if this can be blood from inside with an
EGD.
With the fistula if it is active patient cannot take p.o.
She stated that she was allowed p.o.'s at home again she is a very poor historian therefore I would not take her word for it.
Continue with TPN-ordered
# Anion gap acidosis gap of 17
Lactic acid level normal
suspect met acidosis from Starvation ketosis
Improved
# Vague suicidal ideation, depression-on one-to-one observation
Psychiatry consulted
Okay to take 1:1 off per psyche- DC ed.
# Chronic anemia. Iron indicis indicative of anemia of chronic inflammation with sufficient iron levels.
# History of DVT/PE.
As no surgical procedure planned, will resume Eliquis discontinuing prophylactic Lovenox.
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
Care is very fragmented she states she follows up with at [facility]
She was on Depakote at one point and not on it anymore.
MRI-left medial occipital lobe and posterior temporal lobe and diffusion restriction May 2014- previous right frontal brain craniotomy/brain biopsy
# Nonepileptic seizures and conversion disorder noted on previous neuro consult
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
# Positive JOHNATHON titer 1 is to [id number] April 2021
Pt also says she has a positive Rheumatoid factor
Dr.Albert Nunn in [facility] 20 years ago
Has seen at [facility] has seen her to rule out Mitochondrial disorder , had a muscle Bx.
at [facility] has considered PRESS ,MELAS,CREST , But no Diagnosis
Has seen once and did not go back.
# History of ischemic colitis
# Severe Protein Calorie Malnutrition
# Raynaud's phenomenon
# Stage 2 PI Sacrum
# DVT prophylaxis
# Full code
Anticipated Discharge: Within 24 hours
Subjective/Interval History
-
Date of Service: April 12, 2024
Objective Data
-
Labs:
Laboratory Results
04/12/24
05:06
Sodium 133 L
Potassium 4.5
Chloride 103
Carbon Dioxide 24
BUN 14
Creatinine 0.3 L
Glucose 124 H
Calcium 8.9
Vital Signs:
Vital Signs
Temp Pulse Resp BP Pulse Ox
98.0 F 74 20 108/66 97
04/12/24 07:42 04/12/24 07:42 04/12/24 07:42 04/12/24 07:42 04/12/24 07:42
I&O
04/11/24 04/12/24 04/13/24
06:59 06:59 06:59
Intake Total 1300 / 1300 0 / 0
Output Total 600 / 600 1100 / 1100
Balance 700 / 700 -1100 / -1100
Physical Exam
-
General: Well Developed and No Apparent Distress
HEENT: Normocephalic, Atraumatic and Moist Mucous Membranes
Respiratory: Clear to Auscultation
Cardiac: Regular Rhythm and S1/S2; Negative Murmur, Rub or Gallop
GI: Soft, Nontender, Nondistended and Normal Bowel Sounds; Negative Organomegaly
Rectal: Deferred by Provider
Musculoskeletal: No Clubbing, No Cyanosis and No Edema
Skin: Negative Rash
Neuro: Nonfocal/Grossly Intact
[2024-04-12 15:54] VITALS: BP 116/70
[2024-04-12 18:15] LABS: Glucose - Point of Care 113 mg/dl (70-99)
[2024-04-12] MEDS: Parenteral Nutrition, Central 1000 IV (20:30)
[2024-04-12] MEDS: ELIQUIS 5 MG PO (20:34)
[2024-04-12 23:00] VITALS: BP 122/66
[2024-04-13 03:44] LABS: Glucose - Point of Care 106 mg/dl (70-99)
[2024-04-13 05:23] LABS: % Basophils 0.5 % (0-2); % Eosinophils 1.1 % (0-6); % Immature Granulocytes 0.9 % (0-0.5); % Lymphocytes 31.5 % (20.5-51.1); % Monocytes 14.1 % (1.7-9.3); % Neutrophils 51.9 % (42.2-75.2); Absolute Eosinophils 0.1 10^3/uL (0-0.7); Absolute Lymphocytes 1.4 10^3/uL (1.2-3.4); Absolute Monocytes 0.6 10^3/uL (0.1-0.6); Absolute Neutrophils 2.3 10^3/uL (1.4-6.5); Hematocrit 28.9 % (37.0-47.0); Hemoglobin 9.7 g/dL (12.0-16.0); Mean Corp Hgb Conc. 33.6 g/dL (33.0-37.0); Mean Corpuscular Hgb 31.6 pg (27.0-31.0); Mean Corpuscular Volume 94.1 fL (81.0-99.0); Mean Platelet Volume 9.5 fL (7.4-10.4); Nucleated Red Blood Cells % 0 %; Platelet Count 309 10^3/uL (130-400); Red Blood Cell Count 3.07 10^6/uL (4.20-5.40); Red Cell Dist. Width 14.5 % (11.5-14.5); White Blood Cell Count 4.4 10^3/uL (4.8-10.8)
[2024-04-13] MEDS: MORPHINE SULFATE 2 MG IV ×3 (05:24→17:38)
[2024-04-13 05:26] LABS: Glucose - Point of Care 110 mg/dl (70-99)
[2024-04-13 05:47] LABS: Blood Urea Nitrogen 16 mg/dl (7-17); Calcium 9.2 mg/dl (8.4-10.2); Carbon Dioxide 27 mmol/L (22-30); Chloride 101 mmol/L (98-107); Estimated Creatinine Clearance 53 ml/min; Glucose 106 mg/dl (70-99); Phosphorus 4.3 mg/dl (2.5-4.5); Potassium 4.8 mmol/L (3.5-5.1); Sodium 135 mmol/L (135-145); eGFR > 60.00
[2024-04-13 06:00] VITALS: BMI 14.7
[2024-04-13 07:00] VITALS: BP 100/56
[2024-04-13] MEDS: ELIQUIS 5 MG PO ×2 (07:41→20:56)
--- NOTE | 2024-04-13 08:48 | W.PN.HOSP.TC ---
Today's Communication/Plan
-
CW TPN
Ongoing dispo efforts
Assessment / Plan
Assessment / Plan
63-year-old female had extensive workup and and recent a 3-month hospital stay at [facility] was discharged 2 days ago. Came in with abdominal pain worse in the left upper quadrant. She has had multiple procedures at [facility] with small bowel
obstructions, G-tube placement. She had a bowel movement yesterday. She was initially discharged home with TPN but she was unable to manage with her who has Parkinson disease. CAT scan of the abdomen in the ER showed dilated loops of
proximal and mid small bowel with and decompressed distal loops with a transition point in the right mid to lower abdomen.
Impression:
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
Severe malnutrition cachexia with TPN dependence
Status post multiple laparotomies.
History of PRESS and concern for seizure.
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
Hemiparesis
History of subsegmental PE.
History of Raynaud's syndrome/digital ischemia
Plan
Status post PEG tube/PEG tube removal. In review of her records PEG tube was placed for decompression and patient with chronic partial small bowel obstruction/pseudoobstruction. PEG tube has been removed with residual fistula currently closing
with no indication for any surgical procedure according to gastroenterology and surgery evaluation here. Continue nutritional support with TPN and wound care.
Gen surgery following
TPN renewed
# Small bowel obstruction
Chronic with no current indication for surgical intervention. Oral contrast has progressed through the colon. However patient has a gastro. His fistula therefore surgeon recommending GI evaluation to see if this can be blood from inside with an
EGD.
With the fistula if it is active patient cannot take p.o.
She stated that she was allowed p.o.'s at home again she is a very poor historian
Continue with TPN-ordered
# Vague suicidal ideation, depression-on one-to-one observation
Psychiatry following
# Chronic anemia. Iron indicis indicative of anemia of chronic inflammation with sufficient iron levels.HH stable.
# History of DVT/PE.
As no surgical procedure planned, will resume Eliquis discontinuing prophylactic Lovenox.
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
Care is very fragmented she states she follows up with at [facility]
She was on Depakote at one point and not on it anymore.
MRI-left medial occipital lobe and posterior temporal lobe and diffusion restriction May 2014- previous right frontal brain craniotomy/brain biopsy
# Nonepileptic seizures and conversion disorder noted on previous neuro consult
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
# Positive JOHNATHON titer 1 is to 2560 April 2021
Pt also says she has a positive Rheumatoid factor
Dr.Albert Nunn in [facility] 20 years ago
Has seen at [facility] has seen her to rule out Mitochondrial disorder , had a muscle Bx.
at [facility] has considered PRESS ,MELAS,CREST , But no Diagnosis
Has seen once and did not go back.
# History of ischemic colitis
# Severe Protein Calorie Malnutrition
# Raynaud's phenomenon
# Stage 2 PI Sacrum
# DVT prophylaxis
# Full code
Anticipated Discharge: > 48 hours
Subjective/Interval History
-
Date of Service: April 13, 2024
Complaints of abdo pain around GC fistula but no worse
No N/V
Denies SOB at rest
Objective Data
-
Labs:
Laboratory Results
04/13/24
05:07
WBC 4.4 L
Hgb 9.7 L
Hct 28.9 L
Plt Count 309
Sodium 135
Potassium 4.8
Chloride 101
Carbon Dioxide 27
BUN 16
Creatinine 0.3 L
Glucose 106 H
Calcium 9.2
Vital Signs:
Vital Signs
Temp Pulse Resp BP Pulse Ox
98.5 F 82 15 100/56 96
04/13/24 07:00 04/13/24 07:00 04/13/24 07:00 04/13/24 07:00 04/13/24 07:00
I&O
04/12/24 04/13/24 04/14/24
06:59 06:59 06:59
Intake Total 504 / 504 504 / 504
Output Total 1100 / 1100 800 / 800
Balance -596 / -596 -296 / -296
Review of Systems
-
Respiratory: Denies Trouble Breathing
Cardiac: Denies Chest Pain
Neuro: Denies Dizzy
Physical Exam
-
General: No Apparent Distress
HEENT: Moist Mucous Membranes
Respiratory: Clear to Auscultation; Negative Wheezes or Crackles
Cardiac: Regular Rhythm and S1/S2
GI: Soft, Nondistended, Normal Bowel Sounds and Tender (around PEG tube site)
Neuro: AO x 3
Psych: Calm
Data Reviewed
-
Labs: Labs Reviewed by me
[2024-04-13 11:25] LABS: Glucose - Point of Care 122 mg/dl (70-99)
[2024-04-13 15:00] VITALS: BP 110/64
[2024-04-13 19:07] LABS: Glucose - Point of Care 115 mg/dl (70-99)
[2024-04-13] MEDS: Parenteral Nutrition, Central 1000 IV (20:57)
[2024-04-13 23:00] VITALS: BP 94/56
[2024-04-14 00:52] LABS: Glucose - Point of Care 113 mg/dl (70-99)
[2024-04-14] MEDS: MORPHINE SULFATE 2 MG IV ×4 (02:54→20:54)
[2024-04-14 05:57] LABS: Glucose - Point of Care 139 mg/dl (70-99)
[2024-04-14 07:20] VITALS: BP 99/63
[2024-04-14] MEDS: ELIQUIS 5 MG PO (07:31)
--- NOTE | 2024-04-14 10:19 | W.PN.HOSP.TC ---
Today's Communication/Plan
-
Stat CT head
Neurology consult
Assessment / Plan
Assessment / Plan
63-year-old female had extensive workup and and recent a 3-month hospital stay at [facility] was discharged 2 days ago. Came in with abdominal pain worse in the left upper quadrant. She has had multiple procedures at [facility] with small bowel
obstructions, G-tube placement. She had a bowel movement yesterday. She was initially discharged home with TPN but she was unable to manage with her who has Parkinson disease. CAT scan of the abdomen in the ER showed dilated loops of
proximal and mid small bowel with and decompressed distal loops with a transition point in the right mid to lower abdomen.
Impression:
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
Severe malnutrition cachexia with TPN dependence
Status post multiple laparotomies.
History of PRESS and concern for seizure.
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
Hemiparesis
History of subsegmental PE.
History of Raynaud's syndrome/digital ischemia
Plan
Status post PEG tube/PEG tube removal. In review of her records PEG tube was placed for decompression and patient with chronic partial small bowel obstruction/pseudoobstruction. PEG tube has been removed with residual fistula currently closing
with no indication for any surgical procedure according to gastroenterology and surgery evaluation here. Continue nutritional support with TPN and wound care.
Gen surgery following
TPN renewed
# Small bowel obstruction
Chronic with no current indication for surgical intervention. Oral contrast has progressed through the colon. However patient has a gastro. His fistula therefore surgeon recommending GI evaluation to see if this can be blood from inside with an
EGD.
With the fistula if it is active patient cannot take p.o.
She stated that she was allowed p.o.'s at home again she is a very poor historian
Continue with TPN
# Vague suicidal ideation, depression-on one-to-one observation
Psychiatry following
# Chronic anemia. Iron indicis indicative of anemia of chronic inflammation with sufficient iron levels.HH stable.
# History of DVT/PE.
As no surgical procedure planned, back on Francis discontinued prophylactic Lovenox.
# SHIP SCRAPER disease for which she was treated with steroids and Keppra in 2013
Care is very fragmented she states she follows up with at [facility]
She was on Depakote at one point and not on it anymore.
MRI-left medial occipital lobe and posterior temporal lobe and diffusion restriction May 2014- previous right frontal brain craniotomy/brain biopsy
# Nonepileptic seizures and conversion disorder noted on previous neuro consult
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
# Positive JOHNAHTON titer 1 is to 2560 April 2021
Pt also says she has a positive Rheumatoid factor
Dr.Albert Nunn in [facility] 20 years ago
Has seen at [facility] has seen her to rule out Mitochondrial disorder , had a muscle Bx.
at [facility] has considered PRESS ,MELAS,CREST , But no Diagnosis
Has seen once and did not go back.
# History of ischemic colitis
# Severe Protein Calorie Malnutrition
# Raynaud's phenomenon
# Stage 2 PI Sacrum
# DVT prophylaxis
# Full code
Spoke with the who says speech fluency was not an issue before she had some left-sided weakness. She had a lot of central nervous system issues for which she was followed at [facility].
Not exactly sure about the timing of the onset of her speech issue.
Will get a stat CT head.
Consult neurology.
Total time spent on today's encounter was 52 minutes which included time spent in counseling the patient regarding diagnosis and treatment plan as listed above, goals of care, and symptom management. Case was discussed with nursing staff,
specialists . All labs and imaging personally reviewed by me. Remainder the time spent in detailed review of previous records, lab data, imaging, and other medical provider documentation.
Anticipated Discharge: > 48 hours
Subjective/Interval History
-
Date of Service: April 14, 2024
Pt seems to have expressive aphasia issue.
She is alert . She could tell me her name ,day of the week and month but she has struggle to get her words .
She had abdo pain -got iv pain med
Objective Data
-
Vital Signs:
Vital Signs
Temp Pulse Resp BP Pulse Ox
98.6 F 97 16 99/63 98
04/14/24 07:20 04/14/24 07:20 04/14/24 07:20 04/14/24 07:20 04/14/24 07:20
I&O
04/13/24 04/14/24 04/15/24
06:59 06:59 06:59
Intake Total 504 / 504 554 / 554
Output Total 800 / 800 600 / 600 450 / 450
Balance -296 / -296 -600 / -600 104 / 104
Review of Systems
-
Unable to obtain full review of systems at this time due to: Other (limited due to expressive aphasia issue)
Respiratory: Denies Trouble Breathing
Cardiac: Denies Chest Pain
Abdomen/GI: Reports Abdominal Pain; Denies Nausea
Neuro: Denies Dizzy or Headache
Physical Exam
-
General: No Apparent Distress
HEENT: Moist Mucous Membranes
Respiratory: Clear to Auscultation (anteriorly)
Cardiac: Regular Rhythm and S1/S2
GI: Soft, Nondistended, Normal Bowel Sounds and Tender (gastrocutaneous fistula area but no rebound)
Neuro: Awake and Alert; Negative No Motor Deficits (LUE 4+/5 ;LLE 4/5 - pt nods yes to chronic left sided weakness)
Psych: Calm
Data Reviewed
-
Labs: Labs Reviewed by me
--- NOTE | 2024-04-14 10:58 | CM ---
Per Anup Leiva they are able to accept Monday.
Wiill need TPN orders before noon.
Plan:skilled rehab when medically stable.
[2024-04-14 11:00] LABS: Glucose - Point of Care 124 mg/dl (70-99)
--- NOTE | 2024-04-14 11:01 | CON.NEURO4 ---
Consultation - Neurology 4
-
CONSULTING PHYSICIAN: Elliot
REFERRING PHYSICIAN: Ernie
DICTATED BY: Elliot
DATE/TIME OF REQUEST: 04/14/24 at 1035
DATE/TIME OF CONSULTATION: 04/14/24 at 1045
Reason for Consultation: aphasia
History of Present Illness:
63 year-old female with a complex PMH (see below) worked up extensively at [facility] and [facility] per records with some degree of confusion and possible aphasia since admission per nursing with worsening this AM per her , who spoke with Dr. Klein. I
called a stroke alert upon evaluating the patient.
From [address] Mccormack, neurologist who saw her previously as an inpatient here: 'Transient left sided body numbness and intermittent facial spasm and stuttering speech and left sided paresthesia. My impression is that pt probable suffers from
conversion disorder or triggered by anxiety. I doubt right hemisphere. H/o transient bi-occipital lesions which had resolved. New lesion in the left parietal area. The etiology is uncertain. This MRI finding can not explain her left side
paresthesia.'
Past Medical History:
Taken from hospitalist note:
'RAILWAY SWITCHMAN disease for which she was treated with steroids and Keppra in 2013--meningoencephalitis
Care is very fragmented she states she follows up with Dr. Miranda at [facility]
She was on Depakote at one point and not on it anymore.
MRI-left medial occipital lobe and posterior temporal lobe and diffusion restriction May 2014- previous right frontal brain craniotomy/brain biopsy
at [facility] has considered PRES ,MELAS,CREST , but no clear diagnosis'
?conversion disorder, possible PNEE--noted in previous evaluation with neurology here--Dr. Mccormack
Raynauds
Small bowel obstruction
suicidal ideation, depression
Psychiatry following
Chronic anemia.
DVT/PE
Positive JOHNATHON
History of ischemic colitis
Severe Protein Calorie Malnutrition
Past Surgical History: brain biopsy, muscle biopsy, LP x 5, micro digital sympathectomy
Social History
Tobacco: Non-smoker
Alcohol: None
Drug: None
Personal:
Living: With Family
Employment: Not Employed
Family History
Family History: reviewed and noncontributory
Allergies
codeine Allergy (Verified 04/24/23 12:36)
headache
diphenhydramine Allergy (Verified 04/24/23 12:36)
Unknown
erythromycin base Allergy (Verified 04/24/23 12:36)
abdominal pain
naproxen Allergy (Verified 04/24/23 12:36)
ringing in my ears
Penicillins Allergy (Verified 04/24/23 12:36)
Unknown
quinine Allergy (Verified 04/24/23 12:36)
gastric pain
Tetracyclines Allergy (Verified 04/24/23 12:36)
Rash
Home Medications
�Medication �Instructions �Recorded
apixaban 5 mg tablet (Eliquis) 5 mg PO BID Blood Clot 04/08/24
Prevention/Tx
gabapentin 100 mg capsule 100 mg PO TID Neurological 04/08/24
Condition
Vital Signs
Temp Pulse Resp BP Pulse Ox
98.6 F 97 16 99/63 98
04/14/24 07:20 04/14/24 07:20 04/14/24 07:20 04/14/24 07:20 04/14/24 07:20
Lab Results
04/13/24 05:07
04/13/24 05:07
Sodium 135 mmol/L (135-145) 04/13/24 05:07
Potassium 4.8 mmol/L (3.5-5.1) 04/13/24 05:07
BUN 16 mg/dl (7-17) 04/13/24 05:07
Glucose 106 mg/dl (70-99) H 04/13/24 05:07
Calcium 9.2 mg/dl (8.4-10.2) 04/13/24 05:07
Phosphorus 4.3 mg/dl (2.5-4.5) 04/13/24 05:07
Vitamin B12 870 pg/ml (239-931) 04/10/24 04:38
Review of Symptoms:
Patient denies any fever, headache, chest pain, shortness of breath, GI or symptoms.
�Per the HPI.�All systems are reviewed negative except above.
Physical Exam:
The patient is afebrile, heart sounds S1 and S2 are regular and chest is clear to auscultation bilaterally.
NIH Stroke Scale: see attached
Neurologic Examination:
The patient is awake, alert but very confused; unable to answer month, age; moderate aphasia--able to read one sentence but otherwise unable to read rest of sentences/phrases/identify objects; followed only intermittent basic commands. On cranial
nerve assessment, pupils are 3 mm bilateral, round and reactive to light and accommodation. Visual calderon are full. Extraocular movements are intact. Facial sensations are intact and bilaterally symmetrical, there is no facial asymmetry. Hearing is
intact bilaterally to normal conversation volume. Tongue palate and uvula are midline. Sternocleidomastoid strengths are full bilaterally. LUE with drift. RUE full; BLE no effort against gravity but unclear if this was due to degree of confusion.
No involuntary movement noted. Deep tendon reflexes are 1+ bilateral upper and lower extremities and Babinski is absent bilaterally. Sensations of temperature reduced in the RLE compared to left. There was no extinction noted on double simultaneous
stimulation. Did not follow commands for testing of coordination.
Neuro Imaging:
Last MRI brain here, 08/04/23:
There are multiple small patchy foci of increased diffusion-weighted and FLAIR signal within the right occipital lobe, and extending to the junction with the posterior and superior right temporal lobe. There is also an isolated focus of abnormal
signal within the inferior right temporal lobe, best seen on FLAIR images.
Additionally, there is diffusely increased FLAIR and T2-weighted signal involving the cortex of the right occipital lobe when compared to the left. There is also asymmetric enlargement of the right occipital lobe when compared to the left. Given the
clinical history, these findings may represent sequela of recent status epilepticus. Encephalitis is a differential consideration for the asymmetric enlargement and increased signal of the right occipital lobe. Continued follow-up may be helpful.
For the scattered foci of more focal increased FLAIR signal and diffusion-weighted signal, small foci of ischemia/infarction are a consideration. Patient has reportedly had concern for vasculitis in the past, question whether these could be a
manifestation of vasculitis.
There are numerous punctate 2 mm foci of increased FLAIR signal involving the left cerebellum, and these appear to be near the arzate and white matter junction. These are new from previous examinations, and etiology is uncertain. No evidence for
enhancement.
Small focus of volume loss and FLAIR signal involving the posterolateral left occipital lobe, stable from examinations dating back to 2016, although not present in 2012. This would suggest encephalomalacia from previous brain insult.
Regarding comparison to previous images:
Additional comparison is made to all the patient's previous MRI examinations.
Of note, on MRI of the brain of October 11, 2013, there is a relatively similar distribution of abnormal increased diffusion-weighted signal and FLAIR signal involving the right occipital lobe, mainly involving the cortex. On the examination in
2012, cortex was perhaps slightly more enlarged than on the current examination. Also of note, the signal abnormalities in the right occipital lobe resolved on a follow-up MRI obtained 5 weeks later on November 17, 2013.
This finding increases confidence that the abnormal diffuse cortical increased diffusion-weighted and FLAIR signal within the right occipital lobe is due to post ictal signal intensity changes.
Another difference from the September 2013 examination is the multiple small foci of more focal increased diffusion-weighted and FLAIR signal scattered within the cortex of the right occipital lobe as well as an isolated focus in the inferior right
temporal lobe. Question whether these could represent more focal isolated areas of injury, which could go on to develop atrophic change, similar to the focus chronically seen in the left posterolateral occipital lobe.
Based on temporal changes from the examinations in 2012, follow-up MRI evaluation in 5-6 weeks may be useful.
For the changes in the left cerebellum, one consideration would be cerebellar diaschisis, which has been reported as being contralateral to a region of cerebral hemispheric MRI abnormality after status epilepticus. One theory is that this could be
due to prolonged excitatory synaptic activity view of the cortico- pontine-cerebellar pathway.
Impression:
DELANO AYALA is a 63 year old F who has presented to the hospital with aphasia of unclear time of onset, worsened compared to some baseline aphasia per her who spoke to Dr. Klein.
Differentials for the patient's presentation include:
1. acute stroke
2. side effect of morphine
3. ?conversion/PNEE--possible past events
4. history of meningoencephalitis listed on chart
Patient has the following risk factors for their symptoms:
IV Tenecteplase/IAT candidacy: cannot receive TNK as she last had Eliquis this morning
Recommendations:
-called her to try to clarify timing/her baseline--no answer; will try again later
-check MRI brain without contrast to evaluate for stroke
-as a part of the stroke alert--stat HCT, CTA head/neck and CTP
-BP goal is normotension.
-on Eliquis; should be held if this is acute stroke
- Check hemoglobin A1C. Goal is normoglycemia.
-Will add statin if concern for stroke. Check LDL. Goal LDL after stroke is <70.
- Check an echocardiogram.
-PT/OT/ST evaluations
- DVT prophylaxis
-continue neurochecks
-would strongly consider transfer to [facility] given her complex history/past workup as she is known to them
-need full [facility] records
Critical care time 80 mins
Discussed patient care with: patient, nursing, Dr. Klein, CT
NIH Stroke Scale
NIH Stroke Score
Date of Subsequent NIH Scale: 04/14/24
Time of Subsequent NIH Scale: 10:45
Level of Consciousness: 0 - Alert
LOC Questions: 2-Neither correct
LOC Commands: 1-Performs one correctly
Best Horizontal Gaze: 0-Normal
Visual Calderon: 0=Normal, no visual loss
Facial Palsy: 0=Normal, symmetrical
Motor - Right Arm: 0=No drift 10 seconds
Motor - Left Arm: 1=Drift < 10 seconds
Motor - Right Le-None vs. gravity
Motor - Left Le-None vs. gravity
Limb Ataxia: 0-Absent
Sensation: 1-Mild loss
Best Language: 2-Severe aphasia
Dysarthria: 0-Normal
Extinction and Inattention: 0-No abnormality
Total Score:: 13
[2024-04-14 11:43] VITALS: BP 124/72
--- NOTE | 2024-04-14 13:04 | PTCARENOTE ---
Isidra Zarate from Neuro arrived to bedside at 1050, requested that this RN active a stroke alert (1051). Pt transported to CT at 1103 by this RN, returning to the floor at 1130. Neuro workup to follow. spouse arrived to bedside, updated and
placed on the phone with MRI for clearance. For This Rn NIH scored at an 11. at the moment in time, 1307, pt remains at MRI. MD Klein and Isidra Zarate are aware of pts condition. care plan continues to be followed. EEG just arrived to
bedside. awaiting pts return to floor.
[2024-04-14 15:00] VITALS: BP 125/79
--- NOTE | 2024-04-14 15:28 | EEG.RPT ---
Electroencephalogram Report
Recording
Date of EE04/14/24
Type of EEG: Routine
Length of EEG recordin mins
Done with Video Recording: Yes
Patient Status: Inpatient
Recording Conditions: Awake, Confused and Combative
Hyperventilation Performed: No
Photic Stimulation Performed: Yes
Report
METHODS
A 21 channel digitized electroencephalogram was performed at [facility]. The 10/20 international system of electrode placement was used. In addition to EEG, the patient was monitored for EKG. The duration of the recording was 64 minutes.
BACKGROUND
During the awake state, with the eyes closed, the background consisted of a normal amplitude, 9-10 Hertz posterior reactive rhythm that attenuated appropriately with eye opening. Beta activity was distributed diffusely with an anterior predominance.
There was a normal anterior-posterior voltage gradient. With eye opening the background activity changed to a low voltage mixture of alpha, beta, and occasional theta range frequencies. There were no significant asymmetries of background activity
noted.
PHOTIC STIMULATION
Photic stimulation using a step-ayala increase in photic frequency varying from 1-31 Hertz resulted in no driving responses but no appearance of abnormal activity.
ABNORMAL EEG ACTIVITY
None
CLINICAL EVENTS
None
INTERPRETATION AND CLINICAL CORRELATION
This EEG is normal during the awake state as well as during the activation procedure of photic stimulation. The study was at times severely limited by movement and muscle artifact, during which time underlying seizure activity cannot be definitively
ruled out. No seizures were noted during the recording. A normal EEG, in itself, does not rule out a diagnosis of epilepsy. If clinical suspicion for seizure persists, a sleep-deprived and/or prolonged recording may be warranted.
[2024-04-14 18:05] LABS: HDL Cholesterol 36 mg/dl; LDL Cholesterol, Calculated 124 mg/dl; Total Cholesterol 213 mg/dl (50-199); Triglyceride 269 mg/dl (10-149); Very Low Density Lipoprotein 53 mg/dl (0-30)
[2024-04-14 19:23] LABS: Glucose - Point of Care 84 mg/dl (70-99)
[2024-04-14] MEDS: LIPITOR 80 MG PO (20:34)
[2024-04-14] MEDS: Parenteral Nutrition, Central 1200 IV (21:55)
[2024-04-14 23:03] VITALS: BP 99/63
[2024-04-15 00:30] LABS: Glucose - Point of Care 116 mg/dl (70-99)
[2024-04-15 05:37] VITALS: BMI 14.4
[2024-04-15 05:50] LABS: Hemoglobin 10.2 g/dL (12.0-16.0); Mean Corpuscular Hgb 32.5 pg (27.0-31.0); Mean Corpuscular Volume 95.5 fL (81.0-99.0); Mean Platelet Volume 10.4 fL (7.4-10.4); Platelet Count 335 10^3/uL (130-400); Red Blood Cell Count 3.14 10^6/uL (4.20-5.40); Red Cell Dist. Width 14.7 % (11.5-14.5)
[2024-04-15 05:58] LABS: Glucose - Point of Care 130 mg/dl (70-99)
[2024-04-15 06:17] LABS: ALT (SGPT) 35 U/L (0-35); AST (SGOT) 35 U/L (14-36); Albumin 3.6 g/dl (3.5-5.0); Alkaline Phosphatase 114 U/L (38-126); Blood Urea Nitrogen 22 mg/dl (7-17); Calcium 9.4 mg/dl (8.4-10.2); Carbon Dioxide 25 mmol/L (22-30); Chloride 99 mmol/L (98-107); Estimated Creatinine Clearance 51 ml/min; Glucose 110 mg/dl (70-99); Magnesium 2.1 mg/dl (1.6-2.3); Phosphorus 4.6 mg/dl (2.5-4.5); Potassium 4.7 mmol/L (3.5-5.1); Sodium 133 mmol/L (135-145); Total Bilirubin 0.4 mg/dl (0.2-1.3); Triglycerides 311 mg/dl (10-149); eGFR > 60.00
[2024-04-15 07:00] VITALS: BP 108/70
--- NOTE | 2024-04-15 08:43 | W.PN.NEURO.1 ---
Today's Communication / Plan
-
Would continue to hold apixaban until tomorrow at which time medication can be restarted based on time from onset of symptoms
Goal of normotension
Goal is normoglycemia.
Agree with initiating atorvastatin 80 mg daily
Goal of remediating patient's cachexia
No indication for additional antiseizure medications as the patient has a conversion disorder
Neuro Assessment/Plan
Assessment
Impression:
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
MRI of brain findings suggest acute ischemic stroke left temporal lobe
Plan
Recommendations:
Would continue to hold apixaban until tomorrow at which time medication can be restarted based on time from onset of symptoms
Goal of normotension
Goal is normoglycemia.
Agree with initiating atorvastatin 80 mg daily
Goal of remediating patient's cachexia
No indication for additional antiseizure medications as the patient has a conversion disorder
We will follow peripherally.
Subjective/Objective
Subjective Data
Date of Service: April 15, 2024
Not able to report own medical history.
Objective Data
Vital Signs
Temp Pulse Resp BP Pulse Ox
37.6 C 111 18 108/70 98
04/15/24 07:00 04/15/24 07:00 04/15/24 07:00 04/15/24 07:00 04/15/24 07:00
Lab Results
04/15/24 05:11
04/15/24 05:11
Sodium 133 mmol/L (135-145) L 04/15/24 05:11
Potassium 4.7 mmol/L (3.5-5.1) 04/15/24 05:11
BUN 22 mg/dl (7-17) H 04/15/24 05:11
Glucose 110 mg/dl (70-99) H 04/15/24 05:11
Calcium 9.4 mg/dl (8.4-10.2) 04/15/24 05:11
Phosphorus 4.6 mg/dl (2.5-4.5) H 04/15/24 05:11
LDL Cholesterol, Calc 124 mg/dl 04/14/24 17:34
Vitamin B12 870 pg/ml (239-931) 04/10/24 04:38
Patient Allergies
codeine Allergy (Verified 04/24/23 12:36)
headache
diphenhydramine Allergy (Verified 04/24/23 12:36)
Unknown
erythromycin base Allergy (Verified 04/24/23 12:36)
abdominal pain
naproxen Allergy (Verified 04/24/23 12:36)
ringing in my ears
Penicillins Allergy (Verified 04/24/23 12:36)
Unknown
quinine Allergy (Verified 04/24/23 12:36)
gastric pain
Tetracyclines Allergy (Verified 04/24/23 12:36)
Rash
Review of Systems
-
Unable to obtain full review of systems at this time due to: Dementia
History Source: Patient
All other systems: Reviewed and negative
Physical Exam
-
General: No Apparent Distress, Cachectic and Appears Stated Age
Eyes: Round OU, Vian Conjunctivae and No Ptosis
HEENT: Anicteric and Moist Mucous Membranes
Neck: Full Range of Motion
Respiratory: No Dyspnea
Cardiac: No JVD
GI: Non-distended
Skin: Unremarkable
Extremities: No Clubbing, No Cyanosis and No Edema
Psych: Unable to Assess
Extended Neurological Exam
Mood & Affect: Mood Unremarkable and Affect Unremarkable
Attention Span & Concentration: Awake, Alert, Interactive, Unable to Perform 2 Step Request and Other (Moderate difficulty with single step requests)
Memory: Reduced (Ability to provide own name) and Unable to Recall Personal History
Tremor: Hand Tremor Absent and Head Tremor Absent
Speech: Mildly Reduced Output and Other (Usually perseverative phrases, some intact, appropriate phrases)
Cranial Nerve II: Left Eye: Pupillary Size Unremarkable and Visual Calderon Grossly Intact
Cranial Nerve II: Right Eye: Pupillary Size Unremarkable and Visual Calderon Grossly Intact
Cranial Nerves III, IV, : Extraocular Movement: Grossly Intact
Cranial Nerve VII: Facial Symmetry: Normal Facial Symmetry
Cranial Nerve VIII: Hearing: Unremarkable Hearing to Normal Conversational Volume
Cranial Nerve XI: Shoulder Shrug: Unable to Assess
Muscle Strength, Overall: Spontaneously Moves (All extremities)
Muscle Bulk & Tone: Decreased Bulk (Diffusely) and Increased Tone (In bilateral lower extremities more than upper)
Pronator Drift: No Drift in Upper Extremities
Touch Sensation: Unremarkable
Coordination: Reaches for Objects without Difficulty
Gait & Station: Unable to Assess
Data Reviewed
-
MRI Head: Report Reviewed and Image Reviewed
Labs: Report Reviewed
Reviewed with: Physician and Nurse Practioner
Old Records: Summarized
[2024-04-15] MEDS: ELIQUIS 5 MG PO (08:51)
[2024-04-15 12:49] LABS: Glycohemoglobin (HgbA1c) 5.3 % (4.0-5.6)
--- NOTE | 2024-04-15 14:02 | CM ---
Chart reviewed and new developments over weekend reviewed. product line manager reached out to [facility] in [place], and per Abbie they can accept patient when stable, per admissions at [facility] they will need a script before noon on day of
discharge in order to have TPN orders reviewed and mixed by their pharmacist.
Plan; To follow up with Abbie in admissions at [facility] [phone].
[2024-04-15 15:00] VITALS: BP 117/78
[2024-04-15] MEDS: ZOFRAN 4 MG IV ×2 (16:38→23:48)
--- NOTE | 2024-04-15 17:21 | W.PN.HOSP.TC ---
Today's Communication/Plan
-
Monitor for recurrent fever.
If persistent, repeat chest x-ray, panculture
Monitor closely off antibiotics
Continue TPN
Assessment / Plan
Assessment / Plan
63-year-old female had extensive workup and and recent a 3-month hospital stay at [place] was discharged 2 days ago. Came in with abdominal pain worse in the left upper quadrant. She has had multiple procedures at [facility] with small bowel
obstructions, G-tube placement. She had a bowel movement yesterday. She was initially discharged home with TPN but she was unable to manage with her who has Parkinson disease. CAT scan of the abdomen in the ER showed dilated loops of
proximal and mid small bowel with and decompressed distal loops with a transition point in the right mid to lower abdomen.
Impression:
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
Acute CVA
Severe malnutrition cachexia with TPN dependence
Status post multiple laparotomies.
History of PRES
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
History of seizure
Hemiparesis
History of subsegmental PE.
History of Raynaud's syndrome/digital ischemia
Plan
Acute CVA.
Patient found to have worsening aphasia
MRI of the brain:
1. Large region of cortical arzate matter edema and restricted diffusion in the posterior superior left temporal lobe, posterior inferior left parietal lobe, and posterior inferior left frontal lobe. Diagnostic possibilities are (1) ACUTE ISCHEMIC
INFARCTION, (2) POSTERIOR REVERSIBLE ENCEPHALOPATHY SYNDROME (PRES), or (3) an acute recurrent inflammatory encephalitis.
2. Interval increase (or recurrent) signal abnormality throughout the cortical arzate matter of the right occipital lobe and posterior inferior right parietal lobe which does not demonstrate restricted diffusion - suspicious for either PRES or an
acute recurrent inflammatory encephalitis.
3. Mild encephalomalacia in the anterior superior right frontal lobe deep to a right frontal ranjit hole suggesting a site of previous brain biopsy.
4. Mild to moderate diffuse cerebral and cerebellar volume loss.
5. New large amount of fluid in the right mastoid air cells.
Discussed with neurology
Plan is to resume anticoagulation with Eliquis
Initiated on high potency statin/atorvastatin 80 mg daily
Continue supportive care
Low-grade fever noted 1 episode
Recurrent episode of nausea and vomiting
Continue aspiration precautions
Monitor closely while observing off antibiotics
History of seizures.
EEG 04/14 with no evidence of epileptic activity.
Previously on Keppra and Depakote, currently not on antiepileptic medications.
Status post PEG tube/PEG tube removal. In review of her records PEG tube was placed for decompression and patient with chronic partial small bowel obstruction/pseudoobstruction. PEG tube has been removed with residual fistula currently closing
with no indication for any surgical procedure according to gastroenterology and surgery evaluation here. Continue nutritional support with TPN and wound care.
Gen surgery following
TPN renewed
# Small bowel obstruction
Chronic with no current indication for surgical intervention. Oral contrast has progressed through the colon. However patient has a gastro. His fistula therefore surgeon recommending GI evaluation to see if this can be blood from inside with an
EGD.
With the fistula if it is active patient cannot take p.o.
She stated that she was allowed p.o.'s at home again she is a very poor historian
Continue with TPN
# Vague suicidal ideation, depression-on one-to-one observation
Psychiatry following
# Chronic anemia. Iron indicis indicative of anemia of chronic inflammation with sufficient iron levels.HH stable.
# History of DVT/PE.
As no surgical procedure planned, back on Eliquis discontinued prophylactic Lovenox.
# Positive JOHNATHON titer 1 is to [id number] 2021
Pt also says she has a positive Rheumatoid factor
Dr.Albert Nunn in [facility] 20 years ago
Has seen at [facility] has seen her to rule out Mitochondrial disorder , had a muscle Bx.
at [facility] has considered PRESS ,MELAS,CREST , But no Diagnosis
Has seen once and did not go back.
# History of ischemic colitis
# Severe Protein Calorie Malnutrition
# Raynaud's phenomenon
# Stage 2 PI Sacrum
# DVT prophylaxis
# Full code
Anticipated Discharge: 24 - 48 hours
Subjective/Interval History
-
Date of Service: April 15, 2024
Objective Data
-
Labs:
Laboratory Results
04/15/24
05:11
WBC 6.0
Hgb 10.2 L
Hct 30.0 L
Plt Count 335
Sodium 133 L
Potassium 4.7
Chloride 99
Carbon Dioxide 25
BUN 22 H
Creatinine 0.4 L
Glucose 110 H
Calcium 9.4
Total Bilirubin 0.4
AST 35
ALT 35
Alkaline Phosphatase 114
Vital Signs:
Vital Signs
Temp Pulse Resp BP Pulse Ox
100.4 F H 101 18 117/78 98
04/15/24 15:00 04/15/24 15:00 04/15/24 15:00 04/15/24 15:00 04/15/24 15:00
I&O
04/14/24 04/15/24 04/16/24
06:59 06:59 06:59
Intake Total 554 / 554
Output Total 600 / 600 1230 / 1230
Balance -600 / -600 -676 / -676
Physical Exam
-
General: Well Developed and No Apparent Distress
HEENT: Normocephalic, Atraumatic and Moist Mucous Membranes
Respiratory: Clear to Auscultation
Cardiac: Regular Rhythm and S1/S2; Negative Murmur, Rub or Gallop
GI: Soft, Nontender, Nondistended and Normal Bowel Sounds; Negative Organomegaly
Rectal: Deferred by Provider
Musculoskeletal: No Clubbing, No Cyanosis and No Edema
Skin: Negative Rash
Neuro: Awake, Alert, Oriented and Nonfocal/Grossly Intact
[2024-04-15] MEDS: LIPITOR PO (17:38)
[2024-04-15] MEDS: Parenteral Nutrition, Central 1200 IV (21:42)
[2024-04-15] MEDS: ELIQUIS PO (21:45)
[2024-04-15 23:02] VITALS: BP 126/76
[2024-04-15] MEDS: MORPHINE SULFATE 2 MG IV (23:42)
[2024-04-16 00:12] LABS: Glucose - Point of Care 135 mg/dl (70-99)
[2024-04-16 06:00] VITALS: BMI 14.3
[2024-04-16 06:21] LABS: Glucose - Point of Care 142 mg/dl (70-99)
[2024-04-16 07:42] VITALS: BP 104/65
[2024-04-16] MEDS: MORPHINE SULFATE 2 MG IV (07:48)
[2024-04-16] MEDS: ELIQUIS 5 MG PO (07:49)
--- NOTE | 2024-04-16 07:50 | PTCARENOTE ---
04/16- Patient is unable to answer any coherence questions at this time. She yells out, 'please help me' repeatedly, then when asked how we can help, she only responds with, '1, 1, 1. You know.' Pupils are equal/sluggishly reactive; dilated at 5mm
BL. L-hand medical laboratory specialist is weaker than R. NIH=14 at this time. Notified Physician. See Interventions.
[2024-04-16 08:42] VITALS: BP 104/65
--- NOTE | 2024-04-16 10:10 | CM ---
Addendum entered by Elizabeth Jason 04/16/24 14:50:
Patient has been approved for skilled placement at [facility], bed is available today, auth received, for 9 days skilled Level 1, NRD 04/24/24, Auth [id number], , ambulance auth for acute care ambulance [id number].
[facility]
Report [phone] ask for supervisor film processing

Original Note:
manager metal continues to follow with patient progress notes and TPN orders faxed to [facility], waiting on pharmacist at [facility] to ok orders and then case specialist will proceed with obtaining Auth for patient.
Plan; Skilled placement at [facility] with TPN. Needs [employer] Auth for skilled placement.
--- NOTE | 2024-04-16 11:52 | WOUNDNOTE ---
TODD RN NOTE: With assistance from nurse Sheila turned patient and changed dressings on wounds. Sacrum is healed, silicone foam in use. Abdomen also improved, 2 small openings along old suture line, smaller compared to last seen. Old FT site with
scant drainage, skin surrounding opening healed, Exuderm thin changed. Patient's heels are intact, nurse will change foam adhesives. Remains on air mattress with turning schedule. Will sign off.
[2024-04-16 12:20] LABS: Glucose - Point of Care 129 mg/dl (70-99)
--- NOTE | 2024-04-16 13:50 | W.DS.TRANS ---
DC Summary - Tool Technician
-
Discharge Instructions:
Discharge Diagnosis/Procedures PEG tube site cellulitis with residual
gastrocutaneous fistula.
Acute CVA
Severe malnutrition cachexia with TPN dependence
Status post multiple laparotomies.
History of PRES
History of meningoencephalitis/suspected
mitochondrial encephalopathy (MELAS-like with
chondral disorder)
History of seizure
Hemiparesis
History of subsegmental PE.
History of Raynaud's syndrome/digital ischemia
Diet Other diet
Additional Diets NPO with medications. TPN
Instructions:
Stand-Alone Forms:
Changes to Home Medications: No
Discharge Medications:
DC Medications w/original date entered in [employer]
apixaban 5 mg tablet (Eliquis) 5 mg PO BID Blood Clot Prevention/Tx 04/08/24
gabapentin 100 mg capsule 100 mg PO TID Neurological Condition 04/08/24
acetaminophen 325 mg tablet 650 mg (2 x 325 mg) PO Q6HPRN PRN mild pain/ fever>100.5F #30 tabs 04/16/24
atorvastatin 80 mg tablet 80 mg PO QPM #30 tabs 04/16/24
polyethylene glycol 3350 17 gram oral powder packet (HealthyLax) 17 g PO DAILYPRN PRN constipation #30 ea 04/16/24
Home Medication Changes
Pending Results: No
[2024-04-16] MEDS: LIPITOR PO (14:28)
[2024-04-16 15:30] VITALS: BP 112/69
== END 2024-04-16 17:21 | DRG 388 ==
LOC: 4 WEST ACU 03:00
PROVIDERS: Hospitalist; Internal Medicine; ADMITTING PHYSICIAN Internal Medicine; ATTENDING PHYSICIAN Internal Medicine; CONSULT PHYSICIAN Psychiatry & Neurology Neurology; CONSULT PHYSICIAN Surgery; EMERGENCY PHYSICIAN Emergency Medicine; FAMILY PHYSICIAN Family Medicine; OTHER PHYSICIAN Internal Medicine; OTHER PHYSICIAN Psychiatry & Neurology Psychiatry
DX: K56.690 Other partial intestinal obstruction (principal); E43 Unspecified severe protein-calorie malnutrition; I63.9 Cerebral infarction, unspecified; I26.99 Other pulmonary embolism without acute cor pulmonale; K31.6 Fistula of stomach and duodenum; R45.851 Suicidal ideations; E87.20 Acidosis, unspecified; L03.311 Cellulitis of abdominal wall; K94.22 Gastrostomy infection; R64 Cachexia; Z68.1 Body mass index [BMI] 19.9 or less, adult; F32.A Depression, unspecified; L98.8 Other specified disorders of the skin and subcutaneous tissue; D64.9 Anemia, unspecified; I73.00 Raynaud's syndrome without gangrene; Z79.01 Long term (current) use of anticoagulants
CPT/HCPCS: 0042T; 70450; 70496; 70498; 70553; 74018; 74022; 74177; 80048; 80053; 80061; 81003; 82607; 82728; 82962; 83036; 83540; 83550; 83605; 83690; 83735; 84100; 84443; 84478; 85025; 85027; 87070; 93306; 95813; 96361; 96374; 97163; 97167; 97530; 99285; A9575; Q9967